=== PATIENT | male | born 1955 | race Caucasian/White ===

== ENCOUNTER 2016-05-19 04:49 | Inpatient (IN) | payer OTHER ==
[2016-05-01 12:15] VITALS: BMI 27.0
--- NOTE | 2016-05-01 12:43 | PAT Medication Instructions ---
Service Date May 01, 2016. Current Home Medication List Lisinopril (Zestril), 5 MG PO QAM Potassium Chloride (Micro-K Ext Rel), Unknown Dose PO QAM Medication Instructions For Your Scheduled Surgery - Hold the following medications the morning of surgery: Potassium Chloride (Micro-K Ext Rel), Unknown Dose PO QAM Lisinopril (Zestril), 5 MG PO QAM If you have any questions please call us at [phone] or [phone] ( Kellie) or [phone]
[2016-05-01 13:08] LABS: BASO % 0.4 %; BASO ABS # 0.03 K/uL (0-0.2); COMPLETE YES; EOS % 1.1 %; HEMATOCRIT 43.6 % (42-52); IG% 0.2 %; LYMPH % 28.5 %; LYMPH ABS # 2.39 K/uL (1.2-3.4); MEAN CELL VOLUME 91.2 fL (80-100); MEAN CORPUSCULAR HEMOGLOBIN 31.8 pg (25-34); MEAN CORPUSCULAR HGB CONC 34.9 g/dl (32-36); MEAN PLATELET VOLUME 11.1 fL (7.4-10.4); MONO % 6.1 %; NEUT % 63.7 %; PLATELET COUNT 182 K/uL (130-400); RED BLOOD COUNT 4.78 M/uL (4.7-6.1); WHITE BLOOD COUNT 8.39 K/uL (4.8-10.8)
--- NOTE | 2016-05-01 13:14 | DIAGNOSTIC IMAGING REPORT ---
CHEST 2 VIEWS ROUTINE CLINICAL HISTORY: Preoperative evaluation. COMPARISON STUDY: No previous studies for comparison. FINDINGS: Lung volumes are normal. There is no pneumothorax or pleural effusion. Cardiac size is normal. Mediastinal contours are normal. There is no evidence of pulmonary edema. Several sclerotic lesions likely reflect skeletal metastases. These were shown on prior imaging studies. IMPRESSION: 1. No acute cardiopulmonary findings. 2. Redemonstration of several suspected blastic metastases. Electronically signed by: Koffi Pineda M.D. 05/01/2016 1:12 PM Dictated Date/Time: 05/01/2016 1:04 PM
[2016-05-01 13:42] LABS: CREATININE 0.61 mg/dl (0.60-1.40)
[2016-05-01 13:43] LABS: BUN/CREATININE RATIO 14.8 (10-20); CALCIUM 9.4 mg/dl (8.5-10.1); POTASSIUM 4.6 mmol/L (3.5-5.1)
[2016-05-19] VITALS (7 sets, daily range): BP systolic 100–152; BP diastolic 63–82; PULSE 83–98; TEMP 36.4–37.3; O2SAT 96–99; Ht 180.3 cm; Wt 87.9 kg
[~2016-05-19] VITALS: Ht 180.3 cm; Wt 87.9 kg
[~2016-05-19 04:49] MED LIST: LISI-729 PO; POTA10CA28 PO
[2016-05-19] MEDS ORDERED: [UNRECOGNIZED DRUG - REMARK] PO (05:56)
[2016-05-19] MEDS ORDERED: CEFAZOLIN 2000 MG/60 ML D5W IV SCH (06:00)
[2016-05-19] MEDS ORDERED: LACTATED RINGER'S 1000ML 1,000 ML IV SCH (06:00)
[2016-05-19] MEDS ORDERED: HEPARIN SOD 5000 UNIT/0.5 ML CARP SQ SCH (06:00)
[2016-05-19] MEDS ORDERED: PHENYLEPHRINE HCL INJ 10 MG/ML VIAL ONE ×2 (06:20→09:12)
[2016-05-19] MEDS ORDERED: EpHEDrine SULFATE INJ 50 MG/ML AMP ONE (06:20)
[2016-05-19] MEDS ORDERED: DEXAMETHASONE SOD INJ 4 MG/ML VIAL ONE (06:20)
[2016-05-19] MEDS ORDERED: SUCCINYLCHOLINE CHLORIDE 20 MG/ML 10 ML VIAL IV ONE (06:20)
[2016-05-19] MEDS ORDERED: GLYCOPYRROLATE INJ 0.2 MG/ML VIAL ONE (06:20)
[2016-05-19] MEDS ORDERED: ONDANSETRON INJ 2 MG/ML 2 ML VIAL ONE ×2 (06:20→08:52)
[2016-05-19] MEDS ORDERED: LIDOCAINE HCL 2% 2 ML VIAL (20MG/ML) ONE (06:20)
[2016-05-19] MEDS ORDERED: FENTANYL CITRATE INJ 50 MCG/1 ML 2 ML VIAL ONE ×3 (06:21→08:20)
[2016-05-19] MEDS ORDERED: MIDAZOLAM HCL 1 MG/ML 2ML VIAL ONE (06:21)
[2016-05-19] MEDS ORDERED: PROPOFOL IV EMULSION 10 MG/ML 20 ML VIAL IV ONE ×2 (06:21→08:52)
[2016-05-19] MEDS ORDERED: ROCURONIUM BROMIDE 10 MG/ML 5 ML VIAL ONE ×2 (06:21→08:52)
[2016-05-19] MEDS ORDERED: NEOSTIGMINE METHYLSULFATE 5 MG/5 ML SYR ONE ×2 (06:21→08:52)
[2016-05-19] MEDS ORDERED: ACETAMINOPHEN 1000 MG/100 ML IV IV ONE (06:43)
[2016-05-19] MEDS ORDERED: FENTANYL CITRATE INJ 50 MCG/1 ML 2 ML VIAL IV PRN (07:15)
[2016-05-19] MEDS ORDERED: EpHEDrine SULFATE INJ 50 MG/ML AMP IV PRN (07:15)
[2016-05-19] MEDS ORDERED: ATROPINE SULFATE 0.1 MG/ML 5ML SYR IV PRN (07:15)
[2016-05-19] MEDS ORDERED: HYDROmorphone INJ 1 MG/ML SYR IV PRN (07:15)
[2016-05-19] MEDS ORDERED: ONDANSETRON INJ 2 MG/ML 2 ML VIAL IV PRN ×2 (07:15→11:00)
--- NOTE | 2016-05-19 07:17 | History & Physical Bridge Note ---
H&P Re-Evaluation Bridge Note: I have examined the patient, reviewed the History & Physical and in the interval since the performance of the History & Physical I have noted the following changes of clinical significance: No changes noted
[2016-05-19] MEDS ORDERED: BELLADONNA/OPIUM SUPP 60 MG SUPP PR ONE ×2 (07:50→08:35)
[2016-05-19] MEDS ORDERED: HYDROmorphone INJ 2 MG/ML SYR/VIAL ONE (08:20)
[2016-05-19] MEDS ORDERED: PHENYLEPHRINE 100MCG/ML 5ML SYR ONE (09:12)
[2016-05-19] MEDS ORDERED: SURGICEL ABSORB HEMOSTAT 2IN X 14IN TOP ONE (10:25)
[2016-05-19] MEDS ORDERED: FLOSEAL HEMOSTATIC MATRIX 10ML TOP ONE (10:25)
[2016-05-19] MEDS ORDERED: BUPIVACAINE 0.5 % 5 MG/1 ML MPF 30ML VIAL INJ ONE (10:41)
--- NOTE | 2016-05-19 10:46 | [facility] Post Operative Brief Note ---
Immediate Operative Summary Operative Date May 19, 2016. Pre-Operative Diagnosis Metastatic prostate cancer and urinary retention Post-Operative Diagnosis Same as preoperative diagnosis Procedure(s) Performed Laparoscopic Prostatectomy, Mamadou Surgeon Dr. Gama Physical Therapy Aides Teacher Surgeon(s) Dr. Leobardo Levy Estimated Blood Loss 125 mL Findings As per dictation Specimens Permanent specimens A: Periprostatic fat B: Prostate and seminal vesicles C: Bladder neck margin Drains YISSEL; graves Anesthesia gen Complication(s) None Disposition Recovery Room / PACU (stable)
[2016-05-19] MEDS ORDERED: MoRPHine SULFATE 2 MG/ML CARP IV PRN (11:00)
[2016-05-19] MEDS ORDERED: ACETAMINOPHEN/CODEINE 300/30MG TAB PO PRN ×2 (11:00)
[2016-05-19] MEDS ORDERED: ACETAMINOPHEN 325 MG TAB PO PRN (11:00)
[2016-05-19] MEDS ORDERED: KETOROLAC TROMETHAMINE 30 MG/ML VIAL IV. PRN (11:00)
[2016-05-19] MEDS ORDERED: LABETALOL HCL IV 5 MG/ML 20ML ONE (11:05)
[2016-05-19] MEDS ORDERED: LABETALOL HCL IV 5 MG/ML 20ML IV PRN (11:15)
[2016-05-19 11:22] LABS: BASO % 0.2 %; BASO ABS # 0.02 K/uL (0-0.2); EOS % 0.2 %; HEMATOCRIT 43.5 % (42-52); IG% 0.3 %; LYMPH ABS # 1.51 K/uL (1.2-3.4); MEAN CELL VOLUME 92.8 fL (80-100); MEAN CORPUSCULAR HEMOGLOBIN 31.3 pg (25-34); MEAN PLATELET VOLUME 11.7 fL (7.4-10.4); MONO % 1.9 %; NEUT % 81.4 %; PLATELET COUNT 201 K/uL (130-400); RED BLOOD COUNT 4.69 M/uL (4.7-6.1); WHITE BLOOD COUNT 9.45 K/uL (4.8-10.8)
[2016-05-19 11:26] LABS: COMPLETE YES; MEAN CORPUSCULAR HGB CONC 33.8 g/dl (32-36)
--- NOTE | 2016-05-19 11:41 | Anesthesiology Progress Note ---
Anesthesia Post Op Note Date & Time May 19, 2016 at 11:40 Vital Signs Pain Intensity: 6.0 Vital Signs Past 12 Hours Date Time Temp Pulse Resp B/P Pulse Ox O2 Delivery O2 Flow Rate FiO2 05/19/16 11:18 149/78 05/19/16 11:17 68 16 96 05/19/16 11:17 69 16 05/19/16 11:13 144/77 05/19/16 11:12 68 16 96 05/19/16 11:12 68 16 05/19/16 11:08 145/74 05/19/16 11:07 93 12 99 05/19/16 11:07 94 12 05/19/16 11:03 180/86 05/19/16 11:02 89 16 100 05/19/16 11:02 89 16 05/19/16 10:58 177/89 05/19/16 10:57 79 12 100 05/19/16 10:57 36.4 85 12 193/94 100 Mask 10 05/19/16 10:57 80 12 05/19/16 05:40 36.5 86 20 152/82 96 Room Air Notes Mental Status: alert / awake / arousable, participated in evaluation Pt Amnestic to Procedure: Yes Nausea / Vomiting: adequately controlled Pain: adequately controlled Airway Patency, RR, SpO2: stable & adequate BP & HR: stable & adequate Hydration State: stable & adequate Anesthetic Complications: no major complications apparent
[2016-05-19 11:44] LABS: BUN/CREATININE RATIO 9.3 (10-20); CALCIUM 8.5 mg/dl (8.5-10.1); CREATININE 0.85 mg/dl (0.60-1.40); POTASSIUM 4.2 mmol/L (3.5-5.1)
--- NOTE | 2016-05-19 12:31 | OPERATIVE REPORT ---
DATE OF OPERATION: 05/19/2016 PREOPERATIVE DIAGNOSIS: Metastatic prostate cancer. POSTOPERATIVE DIAGNOSIS: Metastatic prostate cancer. PROCEDURE PERFORMED: Robotic assisted laparoscopic radical prostatectomy. ANESTHESIA: General. PRIMARY SURGEON: Dr. Marques Gama. ASSISTING SURGEON: Dr. Leobardo Levy. ESTIMATED BLOOD LOSS: 125 mL. SPECIMEN: 1. Periprostatic fat for routine pathology. 2. Prostate and seminal vesicles for routine pathology. DRAINS: YISSEL and Mendez. DESCRIPTION OF THE PROCEDURE: Terry Olivas was identified in the preoperative holding area. Appropriate informed consents were reviewed and completed and the patient was transported to the operating suite. Upon arrival, he received appropriate preoperative antibiotics in the form of Ancef. He additionally received a subcutaneous dose of heparin. Following induction of general anesthesia, he was placed in dorsolithotomy position where he was sterilely padded and braced in standard fashion. Of note, per historical background, Terry Olivas was recently diagnosed with metastatic prostate cancer to lymph node and bone. He additionally had urinary retention. The urinary retention has remained problematic and after discussing different options, he elected to have a radical prostatectomy with the hope that it improves both his long-term local symptom control and his ability to urinate. He is understanding that this is not a curative surgery. Following his sterile prep and drape, we passed a Veress needle per umbilicus and insufflated the abdomen to 15 mmHg. I then made a small infraumbilical incision and entered with a 10 mm 0 degree lens and a 10 mm Visiport. Inspection of the abdomen revealed minimal adhesive disease in the left lateral aspect of the sigmoid colon, otherwise healthy appearing abdominal wall with no issues in our planned port sites. The ports were placed in standard robotic prostatectomy locations and fashion without difficulty. I began my real operative portion of the case by mobilizing the lateral aspect of the sigmoid colon and freeing numerous adhesions in that area until I was able to visualize the left lateral pelvic wall and the pouch of Aravind. I then incised the bilateral umbilical ligaments just inferior to the umbilicus. These were controlled with bipolar and monopolar electrocautery before incising the peritoneum lateral to each and carrying this dissection down to the internal rings. Of note, he has bilateral direct inguinal hernias that were visualized did not include any bowel contents. After dissecting laterally, I dissected distally underneath the pubic arch exposing the anterior surface of the prostate and laterally the endopelvic fascia. I defatted the prostate with a combination of bipolar and monopolar electrocautery. I passed this fat off the table as a specimen. I then opened the endopelvic fascia first on the right and then the left. I began at the base and opened to the apex with care to preserve the lateral levator musculature. Of note, the right side opened quite easily. The left side clearly had more of an inflammatory reaction likely consistent with this prior aggressive cancer diagnosis. I was able to preserve all the lateral musculature and carried this dissection beyond the apex of the prostate. I then proceeded to place a twamyv-ed-pigqh stitch over the dorsal venous complex just distal to the prostate with care to avoid entrapment of the urethra. There was excellent hemostasis. At that time, I turned my attention to demarcation of the bladder neck. Of note, the patient has had an indwelling Mendez catheter for some time now has a significantly inflamed and irritated bladder on CT. I was able to dissect through the anterior portion of this utilizing gentle njastjf-pn-syebxx traction with my instruments as well as slight traction on the Mendez catheter to help demarcate the bladder neck. I incised a very thick detrusor muscle in this location and created an anterior cystotomy. I then carried this dissection laterally around the sides of the presumed bladder neck before completely transecting it. I did inspect into the bladder and saw no significant intravesical median lobe. There appeared to be a relatively good bladder neck preservation, however, my suspicion is that the patient had prostate cancer protruding from the back of the prostate on the left side into the bladder. There were clear nodules progressing in this area that appeared to be related directly to the detrusor muscle in addition to the standard prostate tissue. I attempted to resect all of this tissue. There was one small nodule left at the left apex of the bladder that I resected separately and sent as a bladder neck margin with my suspicion being that this is likely prostate cancer. After completing my anterior bladder neck dissection, I carried my dissection posteriorly. Of note, his bladder was notably thicker than normal and after carrying this through several centimeters of detrusor tissue I encountered the bilateral ampulla of the vasa. I transected each of these after exposing approximately 4 cm. Both seminal vesicles were dissected albeit difficulty. They were relatively small in size and firm likely both involved with cancer is my suspicion. After completing the seminal vesicle dissection, I elevated the prostate and I performed a posterior dissection, carrying the plane between the back of the prostate and the rectum through Denonvilliers' fascia. I carried this distally as far as possible and laterally as far as possible. I then controlled the vascular pedicles on each side utilizing the vessel sealer robotic device. I carried this along through the end of the neurovascular bundles bilaterally and towards the apex of the prostate. I completed my atypical dissection utilizing bipolar and monopolar electrocautery to split the previously suture ligated dorsal venous complex and preserved maximal urethral length. There was excellent hemostasis after the prostate was entirely removed as well as excellent preservation of urethral length. Of note, the urethra was not significantly mobile in this area again raising concern for some malignant involvement. I then collected the prostate in an EndoCatch bag and passed it to the upper abdomen. We ran standard anastomosis beginning at the posterior bladder neck utilizing a double armed V-Loc stitch running from posterior to anterior with excellent approximation and hemostasis. A new Mendez catheter was inserted at that time and the bladder was irrigated aggressively with several 100 mL of saline with no evidence of any leak. Catheter was left in place. Floseal was placed around the anastomosis and a YISSEL drain was guided into the left lateral most port. We undocked the robot and extracted the specimen through the infraumbilical incision by expanding the skin incision horizontally and then splitting the midline between the bellies of the rectus muscle for approximately 3 cm before extracting the specimen. I closed the fascia with 3 tlxwev-tl-ooyya PDS stitches followed by closure of all skin incisions with 4-0 Monocryl and infiltration with 0.5% Marcaine as well as dressing of Dermabond. YISSEL was sutured in place with a 0 silk and the case was concluded. The patient was extubated and taken to the PACU in stable condition. There were no complications. I attest to the content of the Intraoperative Record and any orders documented therein. Any exceptio ns are noted below.
[2016-05-19] MEDS: LACTATED RINGER'S 1000ML 1,000 ML IV SCH ×2 (13:25→17:49)
[2016-05-19 13:29] LABS: PARTIAL THROMBOPLASTIN RATIO 1.2; PROTHROMBIN TIME (PATIENT) 10.8 SECONDS (9.0-12.0)
[2016-05-19] MEDS: HEPARIN SOD 5000 UNIT/0.5 ML CARP SQ SCH ×2 (14:28→21:40)
[2016-05-19] MEDS: CEFAZOLIN IV 1,000 MG in DEXTROSE 5% 50ML 50 ML IV SCH ×2 (15:53→23:12)
[2016-05-19] MEDS: DOCUSATE SODIUM 100 MG CAP PO SCH (21:15)
[2016-05-20] VITALS (7 sets, daily range): BP systolic 116–136; BP diastolic 56–73; PULSE 94–106; TEMP 36.7–37.3; O2SAT 91–97
[2016-05-20] MEDS: LACTATED RINGER'S 1000ML 1,000 ML IV SCH ×3 (02:26→19:07)
[2016-05-20 05:50] LABS: BASO % 0.2 %; BASO ABS # 0.02 K/uL (0-0.2); COMPLETE YES; EOS % 0.2 %; HEMATOCRIT 38.6 % (42-52); IG% 0.2 %; LYMPH % 21.7 %; LYMPH ABS # 2.38 K/uL (1.2-3.4); MEAN CELL VOLUME 92.6 fL (80-100); MEAN CORPUSCULAR HEMOGLOBIN 31.4 pg (25-34); MEAN CORPUSCULAR HGB CONC 33.9 g/dl (32-36); MEAN PLATELET VOLUME 11.6 fL (7.4-10.4); MONO % 8.3 %; NEUT % 69.4 %; PLATELET COUNT 182 K/uL (130-400); RED BLOOD COUNT 4.17 M/uL (4.7-6.1); WHITE BLOOD COUNT 10.99 K/uL (4.8-10.8)
[2016-05-20] MEDS: HEPARIN SOD 5000 UNIT/0.5 ML CARP SQ SCH ×4 (05:56→20:46)
[2016-05-20 06:27] LABS: BUN/CREATININE RATIO 12.2 (10-20); CALCIUM 8.4 mg/dl (8.5-10.1); CREATININE 0.54 mg/dl (0.60-1.40); POTASSIUM 3.9 mmol/L (3.5-5.1)
[2016-05-20] MEDS: CEFAZOLIN IV 1,000 MG in DEXTROSE 5% 50ML 50 ML IV SCH ×2 (07:42→15:57)
[2016-05-20] MEDS: DOCUSATE SODIUM 100 MG CAP PO SCH ×2 (07:42→20:38)
[2016-05-20] MEDS: LISINOPRIL 5 MG TAB PO SCH (07:42)
--- NOTE | 2016-05-20 07:45 | Progress Note ---
Progress Note S: Doing very well - ambulating without issue - pain well controlled, no narcotic use since surgery - urine clear O: 05/20/16 05:12 Red Blood Count 4.17, Mean Corpuscular Volume 92.6, Mean Corpuscular Hemoglobin 31.4, Mean Corpuscular Hemoglobin Concent 33.9, Mean Platelet Volume 11.6, Neutrophils (%) (Auto) 69.4, Lymphocytes (%) (Auto) 21.7, Monocytes (%) (Auto) 8.3, Eosinophils (%) (Auto) 0.2, Basophils (%) (Auto) 0.2, Neutrophils # (Auto) 7.64, Lymphocytes # (Auto) 2.38, Monocytes # (Auto) 0.91, Eosinophils # (Auto) 0.02, Basophils # (Auto) 0.02 05/20/16 05:12 Test 05/19/16 11:11 05/19/16 13:07 05/20/16 05:12 Bedside Glucose 147 mg/dl (70-99) Prothrombin Time 10.8 SECONDS (9.0-12.0) Prothromb Time International Ratio 1.0 (0.9-1.1) Activated Partial Thromboplast Time 31.9 SECONDS (21.0-31.0) Partial Thromboplastin Ratio 1.2 White Blood Count 10.99 K/uL (4.8-10.8) Red Blood Count 4.17 M/uL (4.7-6.1) Hemoglobin 13.1 g/dL (14.0-18.0) Hematocrit 38.6 % (42-52) Mean Corpuscular Volume 92.6 fL (80-100) Mean Corpuscular Hemoglobin 31.4 pg (25-34) Mean Corpuscular Hemoglobin Concent 33.9 g/dl (32-36) Platelet Count 182 K/uL (130-400) Mean Platelet Volume 11.6 fL (7.4-10.4) Neutrophils (%) (Auto) 69.4 % Lymphocytes (%) (Auto) 21.7 % Monocytes (%) (Auto) 8.3 % Eosinophils (%) (Auto) 0.2 % Basophils (%) (Auto) 0.2 % Neutrophils # (Auto) 7.64 K/uL (1.4-6.5) Lymphocytes # (Auto) 2.38 K/uL (1.2-3.4) Monocytes # (Auto) 0.91 K/uL (0.11-0.59) Eosinophils # (Auto) 0.02 K/uL (0-0.5) Basophils # (Auto) 0.02 K/uL (0-0.2) RDW Standard Deviation 45.2 fL (36.4-46.3) RDW Coefficient of Variation 13.4 % (11.5-14.5) Immature Granulocyte % (Auto) 0.2 % Immature Granulocyte # (Auto) 0.02 K/uL (0.00-0.02) Anion Gap 7.0 mmol/L (3-11) Est Creatinine Clear Calc Drug Dose 151.0 ml/min Estimated GFR () 130.4 Estimated GFR (Non- 112.5 BUN/Creatinine Ratio 12.2 (10-20) Calcium Level 8.4 mg/dl (8.5-10.1) Vital Signs Past 12 Hours Date Time Temp Pulse Resp B/P Pulse Ox O2 Delivery O2 Flow Rate FiO2 05/20/16 03:13 37.2 100 20 126/73 97 Nasal Cannula 2.0 05/19/16 23:02 37.3 93 18 137/69 99 Nasal Cannula 4.0 05/19/16 19:45 Nasal Cannula 4.0 Low YISSEL output NAD AAOx3 no resp distress RRR abd soft incisions appropriate YISSEL serosang Urine clear A/p: Metastatic prostate ca - s/p RALP secondary to local symptoms and urinary retention - doing very well - cont ambulation - slow diet advance - potential discharge tomorrow
--- NOTE | 2016-05-20 13:47 | Anesthesiology Progress Note ---
Anesthesia Post Op Note Date & Time May 20, 2016 at 13:47 Vital Signs Pain Intensity: 3.0 Vital Signs Past 12 Hours Date Time Temp Pulse Resp B/P Pulse Ox O2 Delivery O2 Flow Rate FiO2 05/20/16 11:04 97 94 05/20/16 07:47 36.8 99 16 136/56 91 Room Air 05/20/16 07:30 97 Room Air 05/20/16 03:13 37.2 100 20 126/73 97 Nasal Cannula 2.0 Notes Mental Status: alert / awake / arousable, participated in evaluation Pt Amnestic to Procedure: Yes Nausea / Vomiting: adequately controlled Pain: adequately controlled Airway Patency, RR, SpO2: stable & adequate BP & HR: stable & adequate Hydration State: stable & adequate Anesthetic Complications: no major complications apparent
[2016-05-21] MEDS: LACTATED RINGER'S 1000ML 1,000 ML IV SCH ×2 (02:50→10:35)
[2016-05-21] MEDS: HEPARIN SOD 5000 UNIT/0.5 ML CARP SQ SCH (05:57)
[2016-05-21 07:45] VITALS: BP 121/62; PULSE 94; TEMP 36.8; O2SAT 93
[2016-05-21 07:55] VITALS: O2SAT 93
[2016-05-21] MEDS: LISINOPRIL 5 MG TAB PO SCH (07:59)
[2016-05-21] MEDS: DOCUSATE SODIUM 100 MG CAP PO SCH ×2 (07:59→08:09)
[2016-05-21] MEDS ORDERED: CIPR-255 PO (08:21)
[2016-05-21] MEDS ORDERED: ACET-749 PO (08:21)
[2016-05-21] MEDS ORDERED: DOCU-94 PO (08:21)
--- NOTE | 2016-05-21 08:23 | Discharge Instructions ---
Discharge Instructions Admission Reason for Admission: Prostate Cancer Discharge Discharge Diagnosis / Problem: Prostate cancer Discharge Goals Goal(s): Decrease discomfort, Improve function, Increase independence, Improve disease control Activity Recommendations Activity Limitations: per Instructions/Follow-up section Lifting Limitations: no more than 25 pounds Exercise/Sports Limitations: until after follow-up appointment May Resume Sexual Activity: after follow-up appointment Shower/Bathe: no limitations (Please avoid the bathtub, but you may shower now) Driving or Machine Use: no limitations . Instructions / Follow-Up Instructions / Follow-Up Please keep your previously scheduled follow up appointment. Current Hospital Diet Hospital Diet(s): Regular Diet Discharge Diet Recommended Diet: Regular Diet Procedures Procedures Performed: Laparoscopic Prostatectomy, DaVinci Pending Studies Studies pending at discharge: no Medical Emergencies . Who to Call and When: Medical Emergencies: If at any time you feel your situation is an emergency, please call 911 immediately. . Non-Emergent Contact Non-Emergency issues call your: Urologist Call Non-Emergent contact if: you have a fever, temperature is above 101.5, wound has increased pain . . "Provider Documentation" section prepared by Kristofer Peterson. VTE Core Measure Inpt VTE Proph given/why not?: Treatment not indicated [place] Drug Monitoring Program Search Results: patient reviewed within database
--- NOTE | 2016-05-21 08:29 | Progress Note ---
Progress Note S: Doing very well - minimal pain - ambulating well - tolerating a diet - BM overnight O: Vital Signs Past 12 Hours Date Time Temp Pulse Resp B/P Pulse Ox O2 Delivery O2 Flow Rate FiO2 05/21/16 07:55 93 Room Air 05/21/16 07:45 36.8 94 12 121/62 93 Room Air 05/20/16 23:30 Room Air 05/20/16 23:04 36.7 106 16 122/70 94 Room Air NAD AAOx3 no resp distress RRR abd soft - incisions appropriate - ALEX with scant serosang out put - urine clear with minimal blood in the tubing A/p: Met prostate ca s/p prostatectomy secondary to retention and local symptoms - doing well - d/c alex - home today
--- NOTE | 2016-05-21 08:33 | Discharge Summary ---
Discharge Summary Admission Date: May 19, 2016 at 10:46 Discharge Date: May 21, 2016 Discharge Disposition: Home Principal Diagnosis: prostate ca Procedures: robotic prostatectomy Medication Reconciliation New Medications: Acetaminophen/Codeine (Tylenol W/Codeine #3) 300 Mg/30 Mg Tab 1 TAB PO Q4H PRN for Pain, #30 TAB Ciprofloxacin Hcl (Cipro) 500 Mg Tab 500 MG PO BID, #14 TAB Docusate Sodium (Colace) 100 Mg Cap 1 CAP PO BID for 30 Days, #60 CAP 2 Refills Continued Medications: Lisinopril (Zestril) 5 Mg Tab 5 MG PO QAM, TAB Potassium Chloride (Micro-K Ext Rel) Unknown Strength Cap Unknown Dose PO QAM, CAP [antibiotic ? name] () 1 TAB PO BID Hospital Course Pt admitted for prostatectomy. Hx of metastatic prostate ca w/ urinary retention and local symptoms. He has elected prostatectomy with the hope of alleviating his retention and local discomfort. This was not a curative attempt. He tolerated the surgery very well and progressed equally well on the floor post operatively. He was ambulatory, his urine cleared appropriately, his YISSEL out put was minimal and he was tolerating a diet. His bowels were moving by POD #2 and he was determined to be in stable condition for d/c home. Total time spent on discharge = This includes examination of the patient, discharge planning, medication reconciliation, and communication with other providers. Discharge Instructions Please see previously written d/c instructions
[2016-05-21 09:06] VITALS: BP 121/62; PULSE 94; TEMP 36.8; O2SAT 93
== END 2016-05-21 11:59 | disposition home or self-care (01) | DRG 707 ==
LOC: ENRESERVTM → ENRESERVDT → C.ACU 04:49 → C.MSN 10:46
PROVIDERS: ADMIT Urology; ATTEND Urology
PROC: 8E0W4CZ Robotic Assisted Procedure of Trunk Region, Percutaneous Endoscopic Approach (ICD-10-PCS; 2016-05-19)
PROC: 0VT04ZZ Resection of Prostate, Percutaneous Endoscopic Approach (ICD-10-PCS; principal; 2016-05-19 07:30)
DX: C61 Malignant neoplasm of prostate (principal); N13.30 Unspecified hydronephrosis; C77.9 Secondary and unspecified malignant neoplasm of lymph node, unspecified; C79.51 Secondary malignant neoplasm of bone; R33.9 Retention of urine, unspecified; I10 Essential (primary) hypertension; F17.200 Nicotine dependence, unspecified, uncomplicated; Z79.899 Other long term (current) drug therapy; Z83.2 Family history of diseases of the blood and blood-forming organs and certain disorders involving the immune mechanism

== ENCOUNTER → 2016-08-31 | Outpatient (CLI) | payer OTHER ==
[~2016-08-31] MED LIST changes: +ACET-749 PO; +CIPR-255 PO; +DOCU-94 PO; +LEUP1INJ6 IM; +OXYC1TAB3 PO; +[UNRECOGNIZED DRUG - REMARK] PO
== END | disposition home or self-care (01) ==
LOC: C.LAB1850 10:57
PROVIDERS: ATTEND Urology
DX: C61 Malignant neoplasm of prostate (principal)

== ENCOUNTER → 2016-12-28 | Outpatient (CLI) | payer OTHER ==
[~2016-12-28] MED LIST changes: -ACET-749 PO; -LEUP1INJ6 IM; -OXYC1TAB3 PO
== END | disposition home or self-care (01) ==
LOC: C.LAB1850 10:05
PROVIDERS: ATTEND Urology
DX: C61 Malignant neoplasm of prostate (principal)

== ENCOUNTER → 2017-01-27 | Outpatient (CLI) | payer OTHER ==
[~2017-01-27] MED LIST changes: +OPTIRAY 320 IV PRN
--- NOTE | 2017-01-27 11:11 | DIAGNOSTIC IMAGING REPORT ---
CT UROGRAM CLINICAL HISTORY: Prostate cancer. COMPARISON STUDY: Abdominal CT dated 03/18/2016. TECHNIQUE: Before and following the IV administration of 92 cc of Optiray 320, CT urogram of the abdomen and pelvis is performed from the lung bases to the proximal femora. Images are reviewed in the axial, sagittal, and coronal planes. IV contrast was administered without complication. A dose lowering technique was utilized adhering to the principles of ALARA. CT DOSE: 1742.22 mGycm FINDINGS: Lung bases: The heart is normal in size and without pericardial effusion. The lung bases are clear. There is a tiny hiatal hernia. Liver: The contrast-enhanced liver is normal in size, contour, and attenuation. There is no intrahepatic biliary ductal dilatation. The hepatic veins and portal veins are patent. Gallbladder: Unremarkable. Spleen: Normal in size and attenuation. Pancreas: Unremarkable. Adrenal glands: Unremarkable. Kidneys and ureters: The contrast enhanced kidneys demonstrate mild cortical atrophy and are without hydronephrosis. There are no renal calculi identified on the unenhanced images. 2 small parenchymal calcifications are identified in the right kidney. The kidneys enhance and excrete symmetrically. Scattered subcentimeter cortical hypodensities are identified. These likely represent cysts but are too small for definitive characterization. There is no enhancing renal cortical mass lesion identified. Mild diffuse urothelial thickening is suggested in both ureters. There is no evidence of urothelial lesion within the renal pelvis bilaterally or along the course of either ureter. The mid right ureter is not well opacified by excreted contrast. Abdominal vasculature: The abdominal aorta is normal in course and caliber noting advanced atherosclerotic calcification. High-grade stenosis is again seen within the left external iliac artery. 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 Bowel: There is moderate colonic diverticulosis without CT evidence of acute diverticulitis. No bowel obstruction is seen. The appendix is not identified. Peritoneum: There is no intraperitoneal free air or abdominal ascites. Lymphadenopathy: None. Pelvic viscera: The prostate gland is surgically absent. There is irregular bladder wall thickening and trabeculation suggesting the sequelae of chronic outlet obstruction Skeletal structures: The skeletal structures are osteopenic. Findings are consistent with multifocal osteoblastic metastatic disease, similar to 03/18/2016 examination. Sclerotic lesions are seen within the left sixth and seventh ribs. There is a large sclerotic lesion seen involving the majority of the T11 vertebral body. Large sclerotic lesions are seen within the medial right ilium and the left ischium. 3 small sclerotic foci are present within the left ilium. Tiny sclerotic foci are also seen within L4, the right iliac wing, and the sacrum. IMPRESSION: 1. Multifocal osteoblastic metastatic disease is again seen. This is overall similar to the 03/18/2016 examination. There is no CT evidence of progressive bony disease. 2. There are postoperative changes from interval prostatectomy. 3. The bladder wall appears irregularly thickened and trabeculated, likely representing the sequelae of chronic outlet obstruction. If there is clinical concern for underlying bladder lesion then cystoscopy would be appropriate. 4. Mild diffuse urothelial thickening is again seen involving the ureters and renal pelvis. No filling defect is identified to suggest urothelial lesion. 5. Moderate colonic diverticulosis without CT evidence of acute diverticulitis. 6. Additional findings as above. Electronically signed by: Paul Sinclair M.D. 01/27/2017 11:10 AM Dictated Date/Time: 01/27/2017 10:55 AM
--- NOTE | 2017-01-27 13:51 | DIAGNOSTIC IMAGING REPORT ---
WHOLE-BODY NUCLEAR BONE SCAN CLINICAL HISTORY: Prostate cancer. COMPARISON STUDY: CT scan of the abdomen and pelvis dated 01/27/2017. TECHNIQUE: Three hours following the IV administration of 27.2 mCi of technetium 99m MDP, whole body nuclear bone scan was performed in the anterior and posterior projections. FINDINGS: There are multiple foci of abnormal tracer deposition identified typical in appearance for bony metastatic disease. A metastatic lesion is identified in the body of T11. These are also seen within the bilateral ribs, likely the right fifth as well as the left sixth and eighth ribs. Large lesions are also seen within the left ischium and the medial right ilium. A large right-sided calvarial lesion is suspected. Typically degenerative uptake is identified in the shoulders, knees, and ankles. There is expected excreted activity within the renal collecting system and bladder. Injection site is noted in the left antecubital fossa. Urine contamination is seen in the groin. IMPRESSION: Findings are consistent with multifocal osseous metastatic disease as above. Electronically signed by: Paul Sinclair M.D. 01/27/2017 1:50 PM Dictated Date/Time: 01/27/2017 1:46 PM
== END | disposition home or self-care (01) ==
LOC: C.NUCL 09:52
PROVIDERS: ATTEND Urology
DX: C61 Malignant neoplasm of prostate (principal); Z90.79 Acquired absence of other genital organ(s); K57.32 Diverticulitis of large intestine without perforation or abscess without bleeding

== ENCOUNTER → 2017-02-24 | Outpatient (CLI) | payer OTHER ==
[~2017-02-24] MED LIST changes: +GADAVIST IV PRN; -OPTIRAY 320 IV PRN
--- NOTE | 2017-02-24 13:37 | DIAGNOSTIC IMAGING REPORT ---
(CHEST) THORAX WITHOUT CLINICAL HISTORY: 61 years-old Male presenting with METASTATIC PROSTATE CA. TECHNIQUE: Multidetector CT imaging of the chest was performed without the use of intravenous contrast. IV contrast: None. A dose lowering technique was used consistent with the principles of ALARA (as low as reasonably achievable). COMPARISON: None. CT DOSE (mGy.cm): The estimated cumulative dose is 404.73 mGy.cm. FINDINGS: Area Mechanic topogram: Unremarkable. On soft tissue windows, normal thyroid and thoracic inlet. No axillary, supraclavicular, or mediastinal lymphadenopathy. Evaluation of the mihir limited without intravenous contrast. Atherosclerosis of the aorta. Aortic valve and coronary artery calcification. Normal heart size. No pericardial or pleural effusion. Upper abdomen normal. On lung windows, no focal infiltrate or nodule. Airways patent. On bone windows, degenerative changes of the spine. Focal sclerotic lesion in the right anterolateral fifth rib additional sclerotic lesion suggested in the anterior left fifth rib, anterolateral seventh rib, and possibly the lateral left eighth rib sclerotic lesion diffusely involving the T11 vertebral body. IMPRESSION: 1. Findings consistent with multifocal osseous metastatic disease. No involvement of the lungs or lymphadenopathy. Electronically signed by: Terry Loera M.D. 02/24/2017 1:36 PM Dictated Date/Time: 02/24/2017 1:31 PM
--- NOTE | 2017-02-24 15:00 | DIAGNOSTIC IMAGING REPORT ---
THORACIC SPINE MRI WITH AND WITHOUT CONTRAST HISTORY: METASTATIC PROSTATE CA TECHNIQUE: Multiplanar multisequence MRI of the thoracic spine was performed both before and after the intravenous administration of contrast. COMPARISON: Chest CT 02/24/2017. FINDINGS: There is confirmation of the primarily hypointense lesion occupying the majority of the T11 vertebral body. This extends into the left pedicle, left lamina, and spinous process. Postcontrast sequences demonstrate a small amount of soft tissue enhancement along the left epidural space at this level consistent with extension of tumor. This measures up to 4 mm in thickness. This results in mild mass effect along the left thecal sac without significant central canal narrowing or cord deformity. The soft tissue extends into the roof of the left T11-T12 neural foramen and results in mild to moderate narrowing. A T1 and T2 hyperintense lesion within the T8 vertebral bodies consistent with a hemangioma. No additional suspicious lesions identified within the thoracic spine. Thoracic spinal cord is normal and course, caliber, and signal intensity. There is mild edema within the T11 vertebral body. No significant loss of height within the T11 vertebral body to suggest a pathologic fracture at this time. IMPRESSION: A hypointense intense lesion occupying the majority of the T11 vertebral body and extending into the left pedicle, left lamina, and spinous process consistent with a metastatic focus. There is also evidence for soft tissue extension of tumor into the left epidural space without significant central canal narrowing. This also extends into the left T11-T12 neural foramen resulting in mild to moderate narrowing. Electronically signed by: Solomon Vivas M.D. 02/24/2017 2:59 PM Dictated Date/Time: 02/24/2017 2:45 PM
== END | disposition home or self-care (01) ==
LOC: C.MRI 13:14
PROVIDERS: ATTEND Internal Medicine Hematology & Oncology
DX: C61 Malignant neoplasm of prostate (principal); M89.9 Disorder of bone, unspecified; M48.04 Spinal stenosis, thoracic region

== ENCOUNTER 2017-07-08 12:30 | Inpatient (IN) | payer OTHER ==
[~2017-07-08] VITALS: Ht 180.3 cm; Wt 78.0 kg
[~2017-07-08 12:30] MED LIST changes: -CIPR-255 PO; -DOCU-94 PO; -GADAVIST IV PRN; +LEUP1INJ6 IM; +OXYC1TAB3 PO; -POTA10CA28 PO; -[UNRECOGNIZED DRUG - REMARK] PO
--- NOTE | 2017-07-08 12:50 | EMERGENCY ROOM VISIT NOTE ---
History Report prepared by Roxy: David Baez Under the Supervision of: Dr. Cuba Wong D.O. First contact with patient: 12:44 Chief Complaint: FLANK PAIN Stated Complaint: PAIN IN R SIDE History of Present Illness The patient is a 61 year old male who presents to the Emergency Room with complaints of severe and worsening pain down the right side of his abdomen that began 5-6 days ago. Nothing makes the pain worse, and it is improved with OxyContin. He was coughing last weekend secondary to cold symptoms. He states that the abdomen did start to swell while he was coughing. The patient states that he had a prostatectomy and a hernia operation in the past. The hernia operation was in last November, and he has been told that the hernia has now returned. The prostatectomy was scheduled secondary to prostate cancer. He is currently on chemotherapy treatment. Source of History: patient Onset: 5-6 days ago Position: abdomen (Right) Symptom Intensity: severe Timing: worsening Associated Symptoms: + cough Note: Known hernia present. Review of Systems See HPI for pertinent positives & negatives. A total of 10 systems reviewed and were otherwise negative. Past Medical & Surgical Medical Problems: (1) Appendicitis with perforation (2) Prostate cancer Family History No pertinent family history Social History Smoking Status: Former Smoker Alcohol Use: none Drug Use: none Current/Historical Medications Scheduled Bicalutamide (Casodex), 4 TAB PO DAILY Leuprolide Acetate (6 Month) (Lupron Depot), 45 MG IM DIRECTED Lisinopril (Zestril), 5 MG PO QAM Allergies Coded Allergies: No Known Allergies (Unverified , 05/19/16) Physical Exam Vital Signs Date Time Temp Pulse Resp B/P (MAP) Pulse Ox O2 Delivery O2 Flow Rate FiO2 07/08/17 13:55 116 15 156/70 97 Room Air 07/08/17 13:09 136 07/08/17 12:36 36.6 139 20 115/70 98 Room Air Physical Exam GENERAL: Patient is awake, alert, and in no acute distress. Patient is resting comfortably and showing no signs of anxiety EYES: The conjunctivae are clear. The pupils are round and reactive. EARS, NOSE, MOUTH AND THROAT: The nose is without any evidence of any deformity. Mucous membranes are moist tongue is midline NECK: The neck is nontender and supple. RESPIRATORY: Normal respiratory effort is noted there is no evidence of wheezing rhonchi or rales CARDIOVASCULAR: Tachycardic rate and regular rhythm noted there no murmurs rubs or gallops normal S1 normal S2 GASTROINTESTINAL: The abdomen moderately distended but diffusely tender. Bowel sounds are present in all quadrants. There is swelling noted in the right upper abdomen, consistent with abdominal wall hernia. BACK: No midline tenderness or or step-off noted range of motion in flexion extension as well as rotation no signs of muscle spasm noted MUSCULOSKELETAL/EXTREMITIES: There is no evidence of gross deformity full range of motion is noted in the hips and shoulders SKIN: There is no obvious evidence of any rash. There are no petechiae, pallor or cyanosis noted. NEUROLOGIC: Patient is awake alert and oriented x3 Medical Decision & Procedures ER Provider Diagnostic Interpretation: Radiology results as stated below per my review and radiologist interpretation: CHEST ONE VIEW PORTABLE CLINICAL HISTORY: cough COMPARISON STUDY: 05/01/2016 FINDINGS: The cardiac and mediastinal contours are normal. There is no evidence of focal pulmonary consolidation. There is no evidence of failure. No pleural effusions are visualized.[ The ribs appear sclerotic consistent with osteoblastic metastasis. IMPRESSION: 1. No active disease in the chest 2. Osteoblastic skeletal metastasis Electronically signed by: Jarred Cui M.D. 07/08/2017 1:15 PM Dictated Date/Time: 07/08/2017 1:[address] ABD/PELVIS IV CONTRAST ONLY CLINICAL HISTORY: Right lower quadrant and flank pain. COMPARISON STUDY: 01/27/2017 TECHNIQUE: Following the IV administration of 93 mL of Optiray-320, CT scan of the abdomen and pelvis was performed from the lung bases to the proximal femurs. Images are reviewed in the axial, sagittal, and coronal planes. IV contrast was administered without complication. A dose lowering technique was utilized adhering to the principles of ALARA. CT DOSE: 993.87 mGycm FINDINGS: Lower chest: There are coronary artery calcifications. There are no pleural effusions. There is no focal pulmonary consolidation. Liver: The contrast-enhanced liver is normal in size, contour, and attenuation. There is no intrahepatic biliary ductal dilatation. The hepatic veins and portal veins are patent. Gallbladder: Unremarkable. Spleen: The spleen is borderline enlarged measuring 12.6 cm Pancreas: Unremarkable. Adrenal glands: There is stable adrenal gland thickening Kidneys: There is a punctate right renal cortical calcification. There are small renal hypodensities measuring up to 1 cm in diameter. These statistically represent cysts. No ureteral or bladder calculi are visualized. There is mild bilateral perinephric stranding most pronounced on the right. Bowel: There is bowel wall thickening involving the cecum and proximal ascending colon. There are extraluminal gas bubbles consistent with a bowel perforation. There is a fluid collection located lateral to the cecum and ascending colon measuring 46 x 17 x 46 mm. This is felt to represent a pericolonic abscess. Medial to this is a second fluid collection measuring 21 mm. A second small abscess is suspected. The findings are likely secondary to either a perforated appendicitis or perforated cecal diverticulitis. There is a small umbilical hernia. A bowel loop partially protrudes into the hernia. This does not result in obstruction. Peritoneum: There are droplets of extraperitoneal air adjacent to the cecum as described above. Vasculature: The abdominal aorta is normal in course and caliber. Adenopathy: Mildly prominent ileocolic lymph nodes are likely reactive. Pelvic viscera: There is bladder wall thickening. Skeletal structures: There is a densely sclerotic T11 vertebral body. Additional skeletal sclerotic lesions are visualized. The findings are suspicious for blastic skeletal metastasis. IMPRESSION: 1. Inflammatory process at the level of the cecum and proximal ascending colon. There are extraluminal gas bubbles consistent with a bowel microperforation. There are 2 small fluid collections adjacent to the cecum consistent with small pericolonic abscesses. The findings are likely secondary to either a perforated appendicitis or perforated cecal diverticulitis. 2. Bladder wall thickening 3. Blastic skeletal metastasis Electronically signed by: Jarred Cui M.D. 07/08/2017 2:03 PM Dictated Date/Time: 07/08/2017 1:50 PM Laboratory Results 07/08/17 13:00 Red Blood Count 4.79, Mean Corpuscular Volume 89.1, Mean Corpuscular Hemoglobin 31.3, Mean Corpuscular Hemoglobin Concent 35.1, Mean Platelet Volume 11.2, Neutrophils (%) (Auto) 87.7, Lymphocytes (%) (Auto) 5.3, Monocytes (%) (Auto) 6.4, Eosinophils (%) (Auto) 0.0, Basophils (%) (Auto) 0.1, Neutrophils # (Auto) 20.81, Lymphocytes # (Auto) 1.25, Monocytes # (Auto) 1.52, Eosinophils # (Auto) 0.00, Basophils # (Auto) 0.03 07/08/17 13:00 Test 07/08/17 13:00 07/08/17 13:09 White Blood Count 23.74 K/uL (4.8-10.8) Red Blood Count 4.79 M/uL (4.7-6.1) Hemoglobin 15.0 g/dL (14.0-18.0) Hematocrit 42.7 % (42-52) Mean Corpuscular Volume 89.1 fL (80-100) Mean Corpuscular Hemoglobin 31.3 pg (25-34) Mean Corpuscular Hemoglobin Concent 35.1 g/dl (32-36) Platelet Count 252 K/uL (130-400) Mean Platelet Volume 11.2 fL (7.4-10.4) Neutrophils (%) (Auto) 87.7 % Lymphocytes (%) (Auto) 5.3 % Monocytes (%) (Auto) 6.4 % Eosinophils (%) (Auto) 0.0 % Basophils (%) (Auto) 0.1 % Neutrophils # (Auto) 20.81 K/uL (1.4-6.5) Lymphocytes # (Auto) 1.25 K/uL (1.2-3.4) Monocytes # (Auto) 1.52 K/uL (0.11-0.59) Eosinophils # (Auto) 0.00 K/uL (0-0.5) Basophils # (Auto) 0.03 K/uL (0-0.2) RDW Standard Deviation 43.6 fL (36.4-46.3) RDW Coefficient of Variation 13.3 % (11.5-14.5) Immature Granulocyte % (Auto) 0.5 % Immature Granulocyte # (Auto) 0.13 K/uL (0.00-0.02) Urine Color DK YELLOW Urine Appearance CLOUDY (CLEAR) Urine pH 5.0 (4.5-7.5) Urine Specific [place] 1.024 (1.000-1.030) Urine Protein 1+ (NEG) Urine Glucose (UA) NEG (NEG) Urine Ketones TRACE (NEG) Urine Occult Blood TRACE (NEG) Urine Nitrite POS (NEG) Urine Bilirubin 1+ (NEG) Urine Urobilinogen POS (NEG) Urine Leukocyte Esterase SMALL (NEG) Urine WBC (Auto) >30 /hpf (0-5) Urine RBC (Auto) 0-4 /hpf (0-4) Urine Hyaline Casts (Auto) 5-10 /lpf (0-5) Urine Epithelial Cells (Auto) 0-5 /lpf (0-5) Urine Bacteria (Auto) 4+ (NEG) Est Creatinine Clear Calc Drug Dose 81.3 ml/min Estimated GFR () 93.6 Estimated GFR (Non- 80.7 BUN/Creatinine Ratio 16.3 (10-20) Calcium Level 8.8 mg/dl (8.5-10.1) Total Bilirubin 1.3 mg/dl (0.2-1) Direct Bilirubin 0.6 mg/dl (0-0.2) Aspartate Amino Transf (AST/SGOT) 7 U/L (15-37) Alanine Aminotransferase (ALT/SGPT) 11 U/L (12-78) Alkaline Phosphatase 98 U/L (45-117) Total Creatine Kinase 19 U/L (39-308) Total Protein 8.3 gm/dl (6.4-8.2) Albumin 3.3 gm/dl (3.4-5.0) Lipase 50 U/L (73-393) Bedside Hemoglobin 16.0 g/dl (14.0-18.0) Bedside Hematocrit 47 % (42-52) Bedside Sodium 133 mEq/L (135-144) Bedside Potassium 4.1 mEq/L (3.3-5.0) Bedside Chloride 95 mEq/L (101-112) Bedside Total CO2 23 mEq/l (24-31) Anion Gap 19.0 mmol/L (16-25) Bedside Blood Urea Nitrogen 16 mg/dl (7-18) Bedside Creatinine 0.7 mg/dl (0.6-1.3) Bedside Glucose (other) 231 mg/dl (70-99) Bedside Ionized Calcium (Luis) 1.06 mmol/l (1.12-1.32) Laboratory results per my review. Medications Administered Medications (Trade) Dose Ordered Sig/Marcio Route Start Time Stop Time Status Last Admin Dose Admin Sodium Chloride 1,000 ml @ 999 mls/hr Q1H1M STAT IV 07/08/17 12:55 07/08/17 13:55 DC 07/08/17 13:14 999 MLS/HR Sodium Chloride 1,000 ml @ 999 mls/hr Q1H1M STAT IV 07/08/17 14:12 07/08/17 15:12 DC 07/08/17 14:21 999 MLS/HR Piperacillin Sod/ Tazobactam Sod (Zosyn Iv) 4.5 gm NOW STAT IV 07/08/17 14:12 07/08/17 14:14 DC 07/08/17 14:21 4.5 GM ED Course 1246: The patient was evaluated in room A10. A complete history and physical examination were performed. 1254: Ordered Sodium Chloride 1000 mL @ 999 mL/hr IV. 1350: I checked on the patient at this time. He is doing well. 1411: I discussed the case with Kimberley Segura PA-C. She will evaluate the patient for further treatment. 1412: Ordered Zosyn 4.5 mg IV, Sodium Chloride 1000 mL @ 999 mL/hr IV. Medical Decision Differential diagnosis: Etiologies such as appendicitis, diverticulitis, PUD, biliary pathology, UTI, pancreatitis, obstruction, mesenteric ischemia, aortic pathology, infections, inflammatory bowel disease, renal colic, as well as others were entertained. Nursing notes are reviewed. The patient is a 61-year-old male who presented to the emergency department for an evaluation of right-sided abdominal pain. The patient was felt to have a mass in his abdomen. On my initial evaluation I thought this could be consistent with a hernia but the patient had significant tenderness in this area. He was found to have an elevated white blood cell count as well as signs of urinary tract infection. He was treated with IV antibiotics. The patient had a CAT scan of the abdomen and pelvis because of his pain and an elevated white blood cell count. This appears to show an area of infection with microperforation which could either be consistent with cecal diverticulitis or appendicitis. This is not very clearly delineated by the CAT scan. I discussed this case with the on-call general surgical group. They have agreed to evaluate the patient in the emergency department for further management and disposition. I discussed patient's laboratory and radiographic studies with him. Medication Reconcilliation Current Medication List: was personally reviewed by me Blood Pressure Screening Patient's blood pressure: Elevated blood pressure Referred to surgeon. Consults Time Called: 1407 Consulting Physician: Kimberley Segura PA-C Returned Call: 1411 I discussed the case with Kimberley Moncada - General Surgery [facility]. She will evaluate the patient for further treatment. Impression Primary Impression: Diverticulitis of intestine with perforation Additional Impression: Urinary tract infection Scribe Attestation The scribe's documentation has been prepared under my direction and personally reviewed by me in its entirety. I confirm that the note above accurately reflects all work, treatment, procedures, and medical decision making performed by me. Departure Information Dispostion Being Evaluated By Surgeon Referrals Pepe Martinez M.D. (PCP) Patient Instructions My [facility] Problem Qualifiers Primary Impression: Diverticulitis of intestine with perforation Diverticulitis site: large intestine Diverticulitis bleeding: unspecified bleeding status Qualified Codes: K57.20 - Diverticulitis of large intestine with perforation and abscess without bleeding Additional Impression: Urinary tract infection Urinary tract infection type: acute cystitis Hematuria presence: without hematuria Qualified Codes: N30.00 - Acute cystitis without hematuria
[2017-07-08] MEDS ORDERED: SODIUM CHLORIDE 0.9% 1000ML 1,000 ML IV STA ×2 (12:55→14:12)
[2017-07-08] MEDS ORDERED: BICA50TA6 PO (13:04)
[2017-07-08 13:11] LABS: HEMATOCRIT 42.7 % (42-52); MEAN CELL VOLUME 89.1 fL (80-100); MEAN CORPUSCULAR HEMOGLOBIN 31.3 pg (25-34); MEAN CORPUSCULAR HGB CONC 35.1 g/dl (32-36); MEAN PLATELET VOLUME 11.2 fL (7.4-10.4); PLATELET COUNT 252 K/uL (130-400); RED CELL DISTRIBUTION WIDTH CV 13.3 % (11.5-14.5); RED CELL DISTRIBUTION WIDTH SD 43.6 fL (36.4-46.3); WHITE BLOOD COUNT 23.74 K/uL (4.8-10.8)
[2017-07-08] MEDS ORDERED: OPTIRAY 320 IV PRN (13:15)
--- NOTE | 2017-07-08 13:17 | DIAGNOSTIC IMAGING REPORT ---
CHEST ONE VIEW PORTABLE CLINICAL HISTORY: cough COMPARISON STUDY: 05/01/2016 FINDINGS: The cardiac and mediastinal contours are normal. There is no evidence of focal pulmonary consolidation. There is no evidence of failure. No pleural effusions are visualized.[ The ribs appear sclerotic consistent with osteoblastic metastasis. IMPRESSION: 1. No active disease in the chest 2. Osteoblastic skeletal metastasis Electronically signed by: Jarred Cui M.D. 07/08/2017 1:15 PM Dictated Date/Time: 07/08/2017 1:14 PM
[2017-07-08 13:24] LABS: ISTAT CREATININE 0.7 mg/dl (0.6-1.3); ISTAT IONIZED CALCIUM 1.06 mmol/l (1.12-1.32); ISTAT POTASSIUM 4.1 mEq/L (3.3-5.0)
[2017-07-08 13:36] LABS: BASO % 0.1 %; BASO ABS # 0.03 K/uL (0-0.2); IG# 0.13 K/uL (0.00-0.02); LYMPH % 5.3 %; LYMPH ABS # 1.25 K/uL (1.2-3.4); MONO % 6.4 %; MONO ABS # 1.52 K/uL (0.11-0.59); NEUT % 87.7 %; NEUT ABS # 20.81 K/uL (1.4-6.5)
[2017-07-08 13:44] LABS: ALBUMIN 3.3 gm/dl (3.4-5.0); CALCIUM 8.8 mg/dl (8.5-10.1); CREATININE 0.99 mg/dl (0.60-1.40); POTASSIUM 4.1 mmol/L (3.5-5.1)
[2017-07-08 13:46] LABS: TOTAL PROTEIN 8.3 gm/dl (6.4-8.2)
--- NOTE | 2017-07-08 14:04 | DIAGNOSTIC IMAGING REPORT ---
CT ABD/PELVIS IV CONTRAST ONLY CLINICAL HISTORY: Right lower quadrant and flank pain. COMPARISON STUDY: 01/27/2017 TECHNIQUE: Following the IV administration of 93 mL of Optiray-320, CT scan of the abdomen and pelvis was performed from the lung bases to the proximal femurs. Images are reviewed in the axial, sagittal, and coronal planes. IV contrast was administered without complication. A dose lowering technique was utilized adhering to the principles of ALARA. CT DOSE: 993.87 mGycm FINDINGS: Lower chest: There are coronary artery calcifications. There are no pleural effusions. There is no focal pulmonary consolidation. Liver: The contrast-enhanced liver is normal in size, contour, and attenuation. There is no intrahepatic biliary ductal dilatation. The hepatic veins and portal veins are patent. Gallbladder: Unremarkable. Spleen: The spleen is borderline enlarged measuring 12.6 cm Pancreas: Unremarkable. Adrenal glands: There is stable adrenal gland thickening Kidneys: There is a punctate right renal cortical calcification. There are small renal hypodensities measuring up to 1 cm in diameter. These statistically represent cysts. No ureteral or bladder calculi are visualized. There is mild bilateral perinephric stranding most pronounced on the right. Bowel: There is bowel wall thickening involving the cecum and proximal ascending colon. There are extraluminal gas bubbles consistent with a bowel perforation. There is a fluid collection located lateral to the cecum and ascending colon measuring 46 x 17 x 46 mm. This is felt to represent a pericolonic abscess. Medial to this is a second fluid collection measuring 21 mm. A second small abscess is suspected. The findings are likely secondary to either a perforated appendicitis or perforated cecal diverticulitis. There is a small umbilical hernia. A bowel loop partially protrudes into the hernia. This does not result in obstruction. Peritoneum: There are droplets of extraperitoneal air adjacent to the cecum as described above. Vasculature: The abdominal aorta is normal in course and caliber. Adenopathy: Mildly prominent ileocolic lymph nodes are likely reactive. Pelvic viscera: There is bladder wall thickening. Skeletal structures: There is a densely sclerotic T11 vertebral body. Additional skeletal sclerotic lesions are visualized. The findings are suspicious for blastic skeletal metastasis. IMPRESSION: 1. Inflammatory process at the level of the cecum and proximal ascending colon. There are extraluminal gas bubbles consistent with a bowel microperforation. There are 2 small fluid collections adjacent to the cecum consistent with small pericolonic abscesses. The findings are likely secondary to either a perforated appendicitis or perforated cecal diverticulitis. 2. Bladder wall thickening 3. Blastic skeletal metastasis Electronically signed by: Jarred Cui M.D. 07/08/2017 2:03 PM Dictated Date/Time: 07/08/2017 1:50 PM
[2017-07-08] MEDS ORDERED: PIPERACILLIN/TAZOBACTAM 4.5 GM/100ML D5W IV STA (14:12)
--- NOTE | 2017-07-08 14:58 | History and Physical ---
History & Physical Date & Time of Service: Jul 08, 2017 at 14:44 Chief Complaint: Pain In R Side Primary Care Physician: Pepe Martinez M.D. History of Present Illness 61-year-old male presented to the emergency department with several day history of right lower quadrant abdominal pain. I actually saw him in the clinic today due to concern for recurrent supraumbilical hernia as well as some right-sided abdominal pain. He was focally tender in the right lower quadrant but is difficult to appreciate whether this was musculoskeletal or peritonitis. We ordered a CT scan but apparently it was not good to be done for 6 days. He saw his oncologist and was referred to the emergency department. He has a history of robotic prostatectomy for prostate cancer, as well as a incisional hernia repair with mesh at his umbilicus performed in the past. Over the past few days he has had been having worsening right-sided abdominal pain. No fevers or chills. No nausea or vomiting, though he does not feel like he can eat, and he also cannot sleep because of the pain. He does notice a slight bulge of the superior portion of his prior hernia repair, and is unsure if this was related to his current pain. His white blood cell count was 26, and a CT scan showed likely perforated appendicitis. Past Medical/Surgical History Medical Problems: Prostate cancer, hypertension, history of urinary retention Past surgical history: Robotic prostatectomy, umbilical hernia repair with mesh Family History No pertinent family history Social History Smoking Status: Former Smoker Drug Use: none Allergies Coded Allergies: No Known Allergies (Unverified , 05/19/16) Home Medications Scheduled Bicalutamide (Casodex), 4 TAB PO DAILY Leuprolide Acetate (6 Month) (Lupron Depot), 45 MG IM DIRECTED Lisinopril (Zestril), 5 MG PO QAM Review of Systems 10 point review of systems negative except as above Physical Exam Vital Signs Date Time Temp Pulse Resp B/P (MAP) Pulse Ox O2 Delivery O2 Flow Rate FiO2 07/08/17 13:55 116 15 156/70 97 Room Air 07/08/17 13:09 136 07/08/17 12:36 36.6 139 20 115/70 98 Room Air General Appearance: WD/WN, no apparent distress Head: normocephalic, atraumatic Eyes: normal inspection, PERRL, EOMI, sclerae normal, + abnormal EOM ENT: normal ENT inspection, hearing grossly normal, TMs normal, pharynx normal Neck: supple, no adenopathy, thyroid normal, no JVD, no carotid bruits, trachea midline Respiratory/Chest: chest non-tender, lungs clear, normal breath sounds, no respiratory distress, no accessory muscle use Cardiovascular: regular rate, rhythm, no edema, no gallop, no JVD, no murmur, normal peripheral pulses Abdomen/GI: normal bowel sounds, soft, no organomegaly, no pulsatile mass, + tenderness (Tenderness to palpation in the right lower quadrant with localized peritonitis. 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, no motor/sensory deficits, alert, normal mood/affect, oriented x 3 Skin: normal color, warm/dry, no rash Lymphatic: no adenopathy Diagnostics Laboratory Results Results Past 24 Hours Test 07/08/17 13:00 07/08/17 13:09 Range/Units White Blood Count 23.74 4.8-10.8 K/uL Red Blood Count 4.79 4.7-6.1 M/uL Hemoglobin 15.0 14.0-18.0 g/dL Hematocrit 42.7 42-52 % Mean Corpuscular Volume 89.1 80-100 fL Mean Corpuscular Hemoglobin 31.3 25-34 pg Mean Corpuscular Hemoglobin Concent 35.1 32-36 g/dl Platelet Count 252 130-400 K/uL Mean Platelet Volume 11.2 7.4-10.4 fL Neutrophils (%) (Auto) 87.7 % Lymphocytes (%) (Auto) 5.3 % Monocytes (%) (Auto) 6.4 % Eosinophils (%) (Auto) 0.0 % Basophils (%) (Auto) 0.1 % Neutrophils # (Auto) 20.81 1.4-6.5 K/uL Lymphocytes # (Auto) 1.25 1.2-3.4 K/uL Monocytes # (Auto) 1.52 0.11-0.59 K/uL Eosinophils # (Auto) 0.00 0-0.5 K/uL Basophils # (Auto) 0.03 0-0.2 K/uL RDW Standard Deviation 43.6 36.4-46.3 fL RDW Coefficient of Variation 13.3 11.5-14.5 % Immature Granulocyte % (Auto) 0.5 % Immature Granulocyte # (Auto) 0.13 0.00-0.02 K/uL Urine Color DK YELLOW Urine Appearance CLOUDY CLEAR Urine pH 5.0 4.5-7.5 Urine Specific [place] 1.024 1.000-1.030 Urine Protein 1+ NEG Urine Glucose (UA) NEG NEG Urine Ketones TRACE NEG Urine Occult Blood TRACE NEG Urine Nitrite POS NEG Urine Bilirubin 1+ NEG Urine Urobilinogen POS NEG Urine Leukocyte Esterase SMALL NEG Urine WBC (Auto) >30 0-5 /hpf Urine RBC (Auto) 0-4 0-4 /hpf Urine Hyaline Casts (Auto) 5-10 0-5 /lpf Urine Epithelial Cells (Auto) 0-5 0-5 /lpf Urine Bacteria (Auto) 4+ NEG Sodium Level 129 136-145 mmol/L Potassium Level 4.1 3.5-5.1 mmol/L Chloride Level 96 98-107 mmol/L Carbon Dioxide Level 22 21-32 mmol/L Anion Gap 11.0 19.0 16-25 mmol/L Blood Urea Nitrogen 16 7-18 mg/dl Creatinine 0.99 0.60-1.40 mg/dl Est Creatinine Clear Calc Drug Dose 81.3 ml/min Estimated GFR () 93.6 Estimated GFR (Non- 80.7 BUN/Creatinine Ratio 16.3 10-20 Random Glucose 220 70-99 mg/dl Calcium Level 8.8 8.5-10.1 mg/dl Total Bilirubin 1.3 0.2-1 mg/dl Direct Bilirubin 0.6 0-0.2 mg/dl Aspartate Amino Transf (AST/SGOT) 7 15-37 U/L Alanine Aminotransferase (ALT/SGPT) 11 12-78 U/L Alkaline Phosphatase 98 45-117 U/L Total Creatine Kinase 19 39-308 U/L Total Protein 8.3 6.4-8.2 gm/dl Albumin 3.3 3.4-5.0 gm/dl Lipase 50 73-393 U/L Bedside Hemoglobin 16.0 14.0-18.0 g/dl Bedside Hematocrit 47 42-52 % Bedside Sodium 133 135-144 mEq/L Bedside Potassium 4.1 3.3-5.0 mEq/L Bedside Chloride 95 101-112 mEq/L Bedside Total CO2 23 24-31 mEq/l Bedside Blood Urea Nitrogen 16 7-18 mg/dl Bedside Creatinine 0.7 0.6-1.3 mg/dl Bedside Glucose (other) 231 70-99 mg/dl Bedside Ionized Calcium (Luis) 1.06 1.12-1.32 mmol/l Diagnostic Radiology CT ABD/PELVIS IV CONTRAST ONLY CLINICAL HISTORY: Right lower quadrant and flank pain. COMPARISON STUDY: 01/27/2017 TECHNIQUE: Following the IV administration of 93 mL of Optiray-320, CT scan of the abdomen and pelvis was performed from the lung bases to the proximal femurs. Images are reviewed in the axial, sagittal, and coronal planes. IV contrast was administered without complication. A dose lowering technique was utilized adhering to the principles of ALARA. CT DOSE: 993.87 mGycm FINDINGS: Lower chest: There are coronary artery calcifications. There are no pleural effusions. There is no focal pulmonary consolidation. Liver: The contrast-enhanced liver is normal in size, contour, and attenuation. There is no intrahepatic biliary ductal dilatation. The hepatic veins and portal veins are patent. Gallbladder: Unremarkable. Spleen: The spleen is borderline enlarged measuring 12.6 cm Pancreas: Unremarkable. Adrenal glands: There is stable adrenal gland thickening Kidneys: There is a punctate right renal cortical calcification. There are small renal hypodensities measuring up to 1 cm in diameter. These statistically represent cysts. No ureteral or bladder calculi are visualized. There is mild bilateral perinephric stranding most pronounced on the right. Bowel: There is bowel wall thickening involving the cecum and proximal ascending colon. There are extraluminal gas bubbles consistent with a bowel perforation. There is a fluid collection located lateral to the cecum and ascending colon measuring 46 x 17 x 46 mm. This is felt to represent a pericolonic abscess. Medial to this is a second fluid collection measuring 21 mm. A second small abscess is suspected. The findings are likely secondary to either a perforated appendicitis or perforated cecal diverticulitis. There is a small umbilical hernia. A bowel loop partially protrudes into the hernia. This does not result in obstruction. Peritoneum: There are droplets of extraperitoneal air adjacent to the cecum as described above. Vasculature: The abdominal aorta is normal in course and caliber. Adenopathy: Mildly prominent ileocolic lymph nodes are likely reactive. Pelvic viscera: There is bladder wall thickening. Skeletal structures: There is a densely sclerotic T11 vertebral body. Additional skeletal sclerotic lesions are visualized. The findings are suspicious for blastic skeletal metastasis. IMPRESSION: 1. Inflammatory process at the level of the cecum and proximal ascending colon. There are extraluminal gas bubbles consistent with a bowel microperforation. There are 2 small fluid collections adjacent to the cecum consistent with small pericolonic abscesses. The findings are likely secondary to either a perforated appendicitis or perforated cecal diverticulitis. 2. Bladder wall thickening 3. Blastic skeletal metastasis Impression Assessment and Plan 61-year-old male with perforated appendicitis. We discussed his options and at this point I think we should pursue nonoperative management with IV antibiotics , and he agreed. Admission to [facility] We will continue IV antibiotics until white blood cell count normalizes and the patient is afebrile, then transition to oral antibiotics for 2 weeks Patient may have clear liquids today, will advance to regular diet if doing well tomorrow Daily labs If condition fails to improve over the next few days then we may consider repeat imaging for possible abscess formation that may require drainage, or if he clinically declines then may consider exploration or washout ASA Classification: ASA Class II Resuscitation Status VTE Prophylaxis Will order VTE Prophylaxis: Yes
[2017-07-08] MEDS ORDERED: DiphenhydrAMINE HCL 50 MG/ML VIAL IV PRN (15:00)
[2017-07-08] MEDS ORDERED: ONDANSETRON INJ 2 MG/ML 2 ML VIAL IV PRN (15:00)
[2017-07-08] MEDS ORDERED: MoRPHine SULFATE 2 MG/ML CARP IV PRN ×2 (15:00)
[2017-07-08] MEDS ORDERED: OXYCODONE/ACETAMINOPHEN 5-325 TAB PO PRN (15:00)
[2017-07-08 16:45] VITALS: BP 130/75; PULSE 115; TEMP 37.6; O2SAT 93
[2017-07-08] MEDS ORDERED: IV FLUIDS COMPLETED PRN (16:45)
[2017-07-08] MEDS: LACTATED RINGER'S 1000ML 1,000 ML IV SCH (17:39)
[2017-07-08] MEDS: KETOROLAC TROMETHAMINE 15 MG/ML VIAL IV. SCH ×2 (17:44→23:27)
[2017-07-08 17:45] VITALS: O2SAT 93; Ht 180.3 cm; Wt 78.0 kg
[2017-07-08 18:00] VITALS: O2SAT 93
[2017-07-08] MEDS ORDERED: NURSING VERBAL MED ORDER ONE (18:30)
[2017-07-08] MEDS: OXYCODONE/ACETAMINOPHEN 5-325 TAB PO PRN (19:00)
[2017-07-08] MEDS: LISINOPRIL 5 MG TAB PO SCH (21:02)
[2017-07-08] MEDS: PIPERACILL/TAZOBAC IV 3.375 GM in DEXTROSE 5% 100ML 100 ML IV SCH (21:44)
[2017-07-08 22:52] VITALS: BP 103/68; PULSE 112; TEMP 37.5; O2SAT 93
[2017-07-09] MEDS: LACTATED RINGER'S 1000ML 1,000 ML IV SCH ×3 (01:03→17:24)
[2017-07-09] MEDS: PIPERACILL/TAZOBAC IV 3.375 GM in DEXTROSE 5% 100ML 100 ML IV SCH (05:42)
[2017-07-09] MEDS: KETOROLAC TROMETHAMINE 15 MG/ML VIAL IV. SCH ×4 (05:42→23:32)
--- NOTE | 2017-07-09 07:29 | Surgery Progress Note ---
Surgery Progress Note Date of Service Jul 09, 2017. Subjective + feeling well (50% improvement overnight), + flatus, + diet (clears), No bowel movement, No nausea Objective Vital Signs: Date Time Temp Pulse Resp B/P (MAP) Pulse Ox O2 Delivery O2 Flow Rate FiO2 07/08/17 23:30 Room Air 07/08/17 22:52 37.5 112 17 103/68 (80) 93 Room Air 07/08/17 18:00 93 Room Air 07/08/17 17:45 93 Room Air 07/08/17 16:45 37.6 115 17 130/75 (93) 93 Room Air 07/08/17 16:02 76 119/65 98 Room Air 07/08/17 13:55 116 15 156/70 97 Room Air 07/08/17 13:09 136 07/08/17 12:36 36.6 139 20 115/70 98 Room Air Abdomen: soft, + tenderness (mild RLQ, no guarding) Laboratory Results: Results Past 24 Hours Test 07/08/17 13:00 07/08/17 13:09 07/09/17 04:44 Range/Units White Blood Count 23.74 4.8-10.8 K/uL Red Blood Count 4.79 4.7-6.1 M/uL Hemoglobin 15.0 14.0-18.0 g/dL Hematocrit 42.7 42-52 % Mean Corpuscular Volume 89.1 80-100 fL Mean Corpuscular Hemoglobin 31.3 25-34 pg Mean Corpuscular Hemoglobin Concent 35.1 32-36 g/dl Platelet Count 252 130-400 K/uL Mean Platelet Volume 11.2 7.4-10.4 fL Neutrophils (%) (Auto) 87.7 % Lymphocytes (%) (Auto) 5.3 % Monocytes (%) (Auto) 6.4 % Eosinophils (%) (Auto) 0.0 % Basophils (%) (Auto) 0.1 % Neutrophils # (Auto) 20.81 1.4-6.5 K/uL Lymphocytes # (Auto) 1.25 1.2-3.4 K/uL Monocytes # (Auto) 1.52 0.11-0.59 K/uL Eosinophils # (Auto) 0.00 0-0.5 K/uL Basophils # (Auto) 0.03 0-0.2 K/uL RDW Standard Deviation 43.6 36.4-46.3 fL RDW Coefficient of Variation 13.3 11.5-14.5 % Immature Granulocyte % (Auto) 0.5 % Immature Granulocyte # (Auto) 0.13 0.00-0.02 K/uL Urine Color DK YELLOW Urine Appearance CLOUDY CLEAR Urine pH 5.0 4.5-7.5 Urine Specific [place] 1.024 1.000-1.030 Urine Protein 1+ NEG Urine Glucose (UA) NEG NEG Urine Ketones TRACE NEG Urine Occult Blood TRACE NEG Urine Nitrite POS NEG Urine Bilirubin 1+ NEG Urine Urobilinogen POS NEG Urine Leukocyte Esterase SMALL NEG Urine WBC (Auto) >30 0-5 /hpf Urine RBC (Auto) 0-4 0-4 /hpf Urine Hyaline Casts (Auto) 5-10 0-5 /lpf Urine Epithelial Cells (Auto) 0-5 0-5 /lpf Urine Bacteria (Auto) 4+ NEG Sodium Level 129 136-145 mmol/L Potassium Level 4.1 3.5-5.1 mmol/L Chloride Level 96 98-107 mmol/L Carbon Dioxide Level 22 21-32 mmol/L Anion Gap 11.0 19.0 16-25 mmol/L Blood Urea Nitrogen 16 7-18 mg/dl Creatinine 0.99 0.60-1.40 mg/dl Est Creatinine Clear Calc Drug Dose 81.3 ml/min Estimated GFR () 93.6 Estimated GFR (Non- 80.7 BUN/Creatinine Ratio 16.3 10-20 Random Glucose 220 70-99 mg/dl Calcium Level 8.8 8.5-10.1 mg/dl Total Bilirubin 1.3 0.2-1 mg/dl Direct Bilirubin 0.6 0-0.2 mg/dl Aspartate Amino Transf (AST/SGOT) 7 15-37 U/L Alanine Aminotransferase (ALT/SGPT) 11 12-78 U/L Alkaline Phosphatase 98 45-117 U/L Total Creatine Kinase 19 39-308 U/L Total Protein 8.3 6.4-8.2 gm/dl Albumin 3.3 3.4-5.0 gm/dl Lipase 50 73-393 U/L Bedside Hemoglobin 16.0 14.0-18.0 g/dl Bedside Hematocrit 47 42-52 % Bedside Sodium 133 135-144 mEq/L Bedside Potassium 4.1 3.3-5.0 mEq/L Bedside Chloride 95 101-112 mEq/L Bedside Total CO2 23 24-31 mEq/l Bedside Blood Urea Nitrogen 16 7-18 mg/dl Bedside Creatinine 0.7 0.6-1.3 mg/dl Bedside Glucose (other) 231 70-99 mg/dl Bedside Ionized Calcium (Luis) 1.06 1.12-1.32 mmol/l Microbiology Results 07/08/17 Urine Culture, Received Pending Assessment & Plan perf appendicitis improved with IV abx WBC pending Tmax 37.6 advance diet
[2017-07-09 07:49] VITALS: BP 104/68; PULSE 90; TEMP 36.3; O2SAT 97
[2017-07-09 08:03] LABS: HEMATOCRIT 37.7 % (42-52); MEAN CELL VOLUME 87.9 fL (80-100); MEAN CORPUSCULAR HEMOGLOBIN 30.3 pg (25-34); MEAN CORPUSCULAR HGB CONC 34.5 g/dl (32-36); MEAN PLATELET VOLUME 11.2 fL (7.4-10.4); PLATELET COUNT 172 K/uL (130-400); RED CELL DISTRIBUTION WIDTH CV 13.6 % (11.5-14.5); RED CELL DISTRIBUTION WIDTH SD 43.2 fL (36.4-46.3); WHITE BLOOD COUNT 18.79 K/uL (4.8-10.8)
[2017-07-09 08:19] VITALS: O2SAT 97
[2017-07-09 08:29] LABS: BASO % 0.1 %; BASO ABS # 0.02 K/uL (0-0.2); IG# 0.07 K/uL (0.00-0.02); LYMPH % 4.5 %; LYMPH ABS # 0.84 K/uL (1.2-3.4); MONO % 3.9 %; MONO ABS # 0.74 K/uL (0.11-0.59); NEUT % 91.1 %; NEUT ABS # 17.12 K/uL (1.4-6.5)
[2017-07-09 08:44] LABS: CALCIUM 7.9 mg/dl (8.5-10.1); CREATININE 0.83 mg/dl (0.60-1.40); POTASSIUM 3.4 mmol/L (3.5-5.1)
[2017-07-09] MEDS ORDERED: ENZALUTAMIDE 40 MG CAP PO SCH (09:00)
[2017-07-09] MEDS ORDERED: LISINOPRIL 5 MG TAB PO SCH (09:00)
[2017-07-09] MEDS ORDERED: BICALUTAMIDE 50 MG TAB PO SCH (09:00)
[2017-07-09] MEDS ORDERED: AMOX875T PO (11:43)
--- NOTE | 2017-07-09 11:44 | Discharge Instructions ---
Discharge Instructions Date of Service Jul 09, 2017. Admission Reason for Admission: Appendicitis With Perforation Discharge Discharge Diagnosis / Problem: appendicitis Discharge Goals Goal(s): Decrease discomfort Activity Recommendations Activity Limitations: resume your previous activity . Instructions / Follow-Up Instructions / Follow-Up Dr. Farfan in 1-2 weeks, call [phone] to schedule or if you have any questions Current Hospital Diet Patient's current hospital diet: Full Liquid Diet Discharge Diet Recommended Diet: Regular Diet Pending Studies Studies pending at discharge: no Medical Emergencies . Who to Call and When: Medical Emergencies: If at any time you feel your situation is an emergency, please call 911 immediately. . Non-Emergent Contact Non-Emergency issues call your: Surgeon Call Non-Emergent contact if: you have a fever, temperature is above 101.5, your pain is not controlled, you have any medication questions . "Provider Documentation" section prepared by Ernesto Chery. .
[2017-07-09 15:27] VITALS: BP 125/52; PULSE 93; TEMP 37; O2SAT 96
[2017-07-09] MEDS: ENZALUTAMIDE 40 MG CAP PO SCH (15:44)
[2017-07-09] MEDS ORDERED: IV FLUIDS COMPLETED PRN (16:15)
[2017-07-09 17:41] VITALS: BP 134/65; PULSE 91
[2017-07-09] MEDS: LISINOPRIL 5 MG TAB PO SCH (17:43)
[2017-07-09 23:15] VITALS: BP 119/67; PULSE 98; TEMP 36.8; O2SAT 95
[2017-07-10] MEDS: LACTATED RINGER'S 1000ML 1,000 ML IV SCH ×3 (00:53→19:47)
[2017-07-10] MEDS: KETOROLAC TROMETHAMINE 15 MG/ML VIAL IV. SCH ×4 (05:28→23:24)
[2017-07-10 07:42] VITALS: BP 98/59; PULSE 96; TEMP 37.1; O2SAT 94
--- NOTE | 2017-07-10 09:25 | Surgery Progress Note ---
Surgery Progress Note Date of Service Jul 10, 2017. Subjective Post OP Day: HD 3 + feeling well, + complaints (RLQ pain), + flatus, + diet (OK), No nausea, No vomiting Objective Vital Signs: Date Time Temp Pulse Resp B/P (MAP) Pulse Ox O2 Delivery O2 Flow Rate FiO2 07/10/17 07:42 37.1 96 16 98/59 (72) 94 Room Air 07/09/17 23:39 Room Air 07/09/17 23:15 36.8 98 18 119/67 (84) 95 Room Air 07/09/17 17:41 91 134/65 (88) 07/09/17 15:38 Room Air 07/09/17 15:27 37.0 93 19 125/52 (76) 96 Room Air General Appearance: WD/WN, no apparent distress Head: normocephalic, atraumatic Neck: supple, trachea midline Respiratory/Chest: lungs clear Cardiovascular: regular rate, rhythm Abdomen: normal bowel sounds, non distended, soft, + tenderness Extremities: non-tender, no pedal edema Assessment & Plan perforated appendicitis -IV abx -decrease IVF -replace K+ -doing OK with diet -still w/pain -WBC decreasing, no fevers -con't treatment
[2017-07-10] MEDS: POTASSIUM CHLORIDE 20 MEQ TABCR PO SCH ×2 (14:20→20:45)
[2017-07-10 15:25] VITALS: O2SAT 94
[2017-07-10] MEDS: ENZALUTAMIDE 40 MG CAP PO SCH (15:30)
[2017-07-10 15:34] VITALS: BP 157/80; PULSE 102; TEMP 36.7; O2SAT 94
[2017-07-10] MEDS: LISINOPRIL 5 MG TAB PO SCH (16:34)
[2017-07-10 23:20] VITALS: BP 151/74; PULSE 96; TEMP 36.6; O2SAT 94
[2017-07-11] MEDS: KETOROLAC TROMETHAMINE 15 MG/ML VIAL IV. SCH ×2 (05:46→11:33)
[2017-07-11 07:14] LABS: BASO % 0.1 %; BASO ABS # 0.01 K/uL (0-0.2); EOS % 0.3 %; EOS ABS # 0.03 K/uL (0-0.5); HEMATOCRIT 32.4 % (42-52); HEMOGLOBIN 10.7 g/dL (14.0-18.0); IG# 0.04 K/uL (0.00-0.02); LYMPH % 7.5 %; LYMPH ABS # 0.69 K/uL (1.2-3.4); MEAN CELL VOLUME 88.3 fL (80-100); MEAN CORPUSCULAR HEMOGLOBIN 29.2 pg (25-34); MEAN PLATELET VOLUME 11.3 fL (7.4-10.4); MONO ABS # 0.37 K/uL (0.11-0.59); NEUT % 87.7 %; NEUT ABS # 8.04 K/uL (1.4-6.5); PLATELET COUNT 198 K/uL (130-400); RED CELL DISTRIBUTION WIDTH CV 13.4 % (11.5-14.5); RED CELL DISTRIBUTION WIDTH SD 43.4 fL (36.4-46.3); WHITE BLOOD COUNT 9.18 K/uL (4.8-10.8)
[2017-07-11 07:19] VITALS: BP 123/72; PULSE 85; TEMP 36.5; O2SAT 95
[2017-07-11 08:03] LABS: CALCIUM 7.6 mg/dl (8.5-10.1); CREATININE 0.45 mg/dl (0.60-1.40); POTASSIUM 3.2 mmol/L (3.5-5.1)
[2017-07-11] MEDS: LACTATED RINGER'S 1000ML 1,000 ML IV SCH (08:34)
[2017-07-11] MEDS: POTASSIUM CHLORIDE 20 MEQ TABCR PO SCH ×2 (08:34→20:33)
--- NOTE | 2017-07-11 10:23 | Surgery Progress Note ---
Surgery Progress Note Date of Service Jul 11, 2017. Subjective Post OP Day: HD 4 + feeling well (better), + complaints (still with right flank pain, improved), + bowel movement, + flatus, + diet (eating OK), No nausea, No vomiting Objective Vital Signs: Date Time Temp Pulse Resp B/P (MAP) Pulse Ox O2 Delivery O2 Flow Rate FiO2 07/11/17 07:52 Room Air 07/11/17 07:19 36.5 85 19 123/72 (89) 95 Room Air 07/10/17 23:32 Room Air 07/10/17 23:20 36.6 96 18 151/74 (99) 94 Room Air 07/10/17 15:34 36.7 102 18 157/80 (105) 94 Room Air 07/10/17 15:25 94 Room Air General Appearance: WD/WN, no apparent distress Head: normocephalic, atraumatic Neck: supple, trachea midline Respiratory/Chest: lungs clear Cardiovascular: regular rate, rhythm Abdomen: normal bowel sounds, non distended, soft, + tenderness (moderate) Extremities: non-tender, no pedal edema Laboratory Results: Results Past 24 Hours Test 07/11/17 06:43 Range/Units White Blood Count 9.18 4.8-10.8 K/uL Red Blood Count 3.67 4.7-6.1 M/uL Hemoglobin 10.7 14.0-18.0 g/dL Hematocrit 32.4 42-52 % Mean Corpuscular Volume 88.3 80-100 fL Mean Corpuscular Hemoglobin 29.2 25-34 pg Mean Corpuscular Hemoglobin Concent 33.0 32-36 g/dl Platelet Count 198 130-400 K/uL Mean Platelet Volume 11.3 7.4-10.4 fL Neutrophils (%) (Auto) 87.7 % Lymphocytes (%) (Auto) 7.5 % Monocytes (%) (Auto) 4.0 % Eosinophils (%) (Auto) 0.3 % Basophils (%) (Auto) 0.1 % Neutrophils # (Auto) 8.04 1.4-6.5 K/uL Lymphocytes # (Auto) 0.69 1.2-3.4 K/uL Monocytes # (Auto) 0.37 0.11-0.59 K/uL Eosinophils # (Auto) 0.03 0-0.5 K/uL Basophils # (Auto) 0.01 0-0.2 K/uL RDW Standard Deviation 43.4 36.4-46.3 fL RDW Coefficient of Variation 13.4 11.5-14.5 % Immature Granulocyte % (Auto) 0.4 % Immature Granulocyte # (Auto) 0.04 0.00-0.02 K/uL Sodium Level 137 136-145 mmol/L Potassium Level 3.2 3.5-5.1 mmol/L Chloride Level 106 98-107 mmol/L Carbon Dioxide Level 27 21-32 mmol/L Anion Gap 4.0 3-11 mmol/L Blood Urea Nitrogen 12 7-18 mg/dl Creatinine 0.45 0.60-1.40 mg/dl Est Creatinine Clear Calc Drug Dose 178.9 ml/min Estimated GFR () 139.6 Estimated GFR (Non- 120.4 BUN/Creatinine Ratio 27.4 10-20 Random Glucose 115 70-99 mg/dl Calcium Level 7.6 8.5-10.1 mg/dl Assessment & Plan perforated appendicitis -IV abx -change IVF, add K+ -replace K+; 3.2 today -doing OK with diet -still w/pain -WBC decreasing, no fevers -con't treatment -possible repeat CT scan early next week
[2017-07-11] MEDS: D5NSS + 20MEQ KCL 1,000 ML IV SCH ×2 (11:31→23:09)
[2017-07-11] MEDS: ENZALUTAMIDE 40 MG CAP PO SCH (15:42)
[2017-07-11 15:50] VITALS: O2SAT 97
[2017-07-11 15:54] VITALS: BP 144/79; PULSE 79; TEMP 36.9; O2SAT 97
[2017-07-11] MEDS: LISINOPRIL 5 MG TAB PO SCH (16:47)
[2017-07-11 22:50] VITALS: BP 137/78; PULSE 88; TEMP 37.1; O2SAT 95
[2017-07-11] MEDS: OXYCODONE/ACETAMINOPHEN 5-325 TAB PO PRN (23:08)
[2017-07-12] MEDS: OXYCODONE/ACETAMINOPHEN 5-325 TAB PO PRN ×2 (03:36→09:16)
[2017-07-12 08:03] LABS: CALCIUM 7.5 mg/dl (8.5-10.1); CREATININE 0.43 mg/dl (0.60-1.40); POTASSIUM 3.7 mmol/L (3.5-5.1)
[2017-07-12 08:18] VITALS: BP 145/81; PULSE 74; TEMP 36.3; O2SAT 97
[2017-07-12] MEDS ORDERED: PIPERACILL/TAZOBAC CONSULT ACTIVE PRN (08:45)
[2017-07-12] MEDS ORDERED: OPTIRAY 320 IV PRN (08:45)
--- NOTE | 2017-07-12 08:46 | Surgery Progress Note ---
Surgery Progress Note Date of Service Jul 12, 2017. Subjective not feeling well, not eating, some abdominal discomfort and diarrhea Objective Vital Signs: Date Time Temp Pulse Resp B/P (MAP) Pulse Ox O2 Delivery O2 Flow Rate FiO2 07/12/17 08:18 36.3 74 22 145/81 (102) 97 Room Air 07/12/17 07:00 Room Air 07/11/17 23:05 Room Air 07/11/17 22:50 37.1 88 18 137/78 (97) 95 Room Air 07/11/17 15:54 36.9 79 16 144/79 (100) 97 Room Air 07/11/17 15:50 97 Abdomen: + distended (slightly), + tenderness (RLQ) Laboratory Results: Results Past 24 Hours Test 07/12/17 06:43 Range/Units Sodium Level 140 136-145 mmol/L Potassium Level 3.7 3.5-5.1 mmol/L Chloride Level 110 98-107 mmol/L Carbon Dioxide Level 25 21-32 mmol/L Anion Gap 5.0 3-11 mmol/L Blood Urea Nitrogen 10 7-18 mg/dl Creatinine 0.43 0.60-1.40 mg/dl Est Creatinine Clear Calc Drug Dose 187.2 ml/min Estimated GFR () 142.2 Estimated GFR (Non- 122.7 BUN/Creatinine Ratio 22.2 10-20 Random Glucose 124 70-99 mg/dl Calcium Level 7.5 8.5-10.1 mg/dl Assessment & Plan perf appendicitis WBC normalizing but not much clinical improvement, will repeat CT, check for C. diff
[2017-07-12] MEDS ORDERED: PIPERACILL/TAZOBAC IV 4.5 GM in DEXTROSE 5% 100ML 100 ML IV ONE (09:00)
[2017-07-12] MEDS: POTASSIUM CHLORIDE 20 MEQ TABCR PO SCH (09:16)
[2017-07-12] MEDS: D5NSS + 20MEQ KCL 1,000 ML IV SCH (13:09)
[2017-07-12] MEDS: PIPERACILL/TAZOBAC IV 3.375 GM in DEXTROSE 5% 100ML 100 ML IV SCH ×2 (14:05→22:05)
--- NOTE | 2017-07-12 14:08 | DIAGNOSTIC IMAGING REPORT ---
ABD/PELVIS IV AND ORAL CONT CLINICAL HISTORY: 61 years-old Male presenting with f/u perf appendicitis, right-sided pain. TECHNIQUE: Multidetector CT of the abdomen and pelvis was performed after the administration of oral and intravenous contrast. IV contrast: 118 mL of Optiray 320. A dose lowering technique was used consistent with the principles of ALARA (as low as reasonably achievable). COMPARISON: 07/08/2017. CT DOSE (mGy.cm): The estimated cumulative dose is 1022.93 mGy.cm. FINDINGS: Severity Of Illness Coordinator topogram: Unremarkable. Lung bases: Bandlike opacity at the right lung base new from most recent prior and likely atelectasis. Dependent consolidation, right greater than left with associated small right and trace left pleural effusions, also likely atelectasis. Normal heart size. Coronary artery and aortic valve calcification. No pericardial effusion. Liver: Normal morphology. No liver lesion. Patent hepatic vasculature. Biliary: No intrahepatic or extrahepatic biliary ductal dilatation. Normal gallbladder. Pancreas: Mild parenchymal atrophy. Spleen: Normal. Adrenal glands: Normal. Kidneys and ureters: Several tiny hypodensities in the kidneys indeterminate but likely small cysts. Parenchymal calcification versus punctate renal calculus noted in the interpolar region of the right kidney. No other potential calculi. Renovascular calcification noted. No hydronephrosis. Mild urothelial thickening as on prior exams. Nonspecific mild perinephric fat stranding. The ureters are nondilated. Bladder: Incompletely evaluated secondary to underdistention. Circumferential wall thickening suggested. Pelvic organs: The patient is status post prostatectomy. No suspicious nodular enhancing soft tissue at the ureteral anastomosis. Bowel: Diverticulosis of the descending and proximal sigmoid colon. Mild pericolonic fat stranding along the cecum and ascending colon. Interval increase in size of the fluid collection subjacent to the abdominal wall immediately lateral to the cecum. This now measures 6.7 x 4.1 cm in maximal axial dimensions, previously 4.6 x 1.7 cm. The second previously described collection, which may encompass the appendiceal base, is unchanged in size measuring approximately 2 cm. This inflammatory changes centered at the appendix with presumed perforation the appendix. The appendiceal anatomy in this region was best demonstrated on prior CT from 03/18/2016. Adjacent peritoneal thickening. Edema of the overlying abdominal wall musculature. No bowel obstruction. Peritoneal cavity: Right lower quadrant collection as previously noted. Trace free fluid in the right paracolic gutter. No gross free intraperitoneal gas, however, trace foci of pneumoperitoneum, which are likely sequestered by inflamed omentum and mesentery noted in the right lower quadrant. Lymph nodes: No enlarged lymph nodes in the abdomen or pelvis. Vasculature: Extensive calcified and noncalcified atherosclerotic plaque throughout the normal caliber abdominal aorta. This affects the origins of several branch vessels. Redemonstration of complete or near complete occlusion of the left common iliac artery with distal reconstitution. Complete or near-complete occlusion of the mid to distal left internal iliac artery also noted. IVC patent. Abdominal wall: Extensive subcutaneous edema focally along the right lateral abdominal wall overlying the area of the inflammation of the abdominal wall musculature and subjacent abscess. Musculoskeletal: Degenerative changes of the spine. Multifocal sclerotic lesions consistent with known metastatic disease. These are unchanged since the most recent prior exam though increased in sclerosis since prior CT from February. IMPRESSION: 1. Interval increase in size of the periappendiceal abscess, which now measures 6.7 x 4.1 cm. This would likely be amenable to percutaneous drainage if clinically indicated. Overlying abdominal wall inflammatory change and cellulitis. 2. Findings again consistent with acute complicated appendicitis with sequestered perforation. No free intra-abdominal gas. 3. Postsurgical changes of prostatectomy. 4. Chronic urothelial thickening could relate to prior chronic bladder outlet obstruction and/or reflux uropathy. Presumably, the patient does not have an active urinary tract infection to suppose upper tract involvement. 5. Increased sclerosis of the known metastatic osseous lesions since prior CT in February though stable since most recent prior on 07/08/2017. 6. Increased bibasilar atelectasis. 7. 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 The report will be called/faxed according to standard departmental protocol. Electronically signed by: Terry Loera M.D. 07/12/2017 2:07 PM Dictated Date/Time: 07/12/2017 1:52 PM
[2017-07-12 15:09] VITALS: BP 149/76; PULSE 81; TEMP 36.5; O2SAT 98
[2017-07-12] MEDS: ENZALUTAMIDE 40 MG CAP PO SCH (15:33)
[2017-07-12] MEDS: LISINOPRIL 5 MG TAB PO SCH (17:47)
[2017-07-12 23:30] VITALS: BP 131/74; PULSE 86; TEMP 36.7; O2SAT 94
[2017-07-13] MEDS: D5NSS + 20MEQ KCL 1,000 ML IV SCH (02:32)
[2017-07-13] MEDS: OXYCODONE/ACETAMINOPHEN 5-325 TAB PO PRN ×3 (02:36→18:33)
[2017-07-13] MEDS: PIPERACILL/TAZOBAC IV 3.375 GM in DEXTROSE 5% 100ML 100 ML IV SCH ×3 (05:28→21:52)
[2017-07-13 06:54] VITALS: BP 146/75; PULSE 85; TEMP 37; O2SAT 95
[2017-07-13 07:34] LABS: CREATININE 0.41 mg/dl (0.60-1.40)
[2017-07-13 08:40] VITALS: BP 159/83; PULSE 87; TEMP 36.9; O2SAT 96
[2017-07-13 10:23] VITALS: BP 146/78; PULSE 80; TEMP 36.9; O2SAT 97
--- NOTE | 2017-07-13 10:58 | DIAGNOSTIC IMAGING REPORT ---
ABSCESS DRAINAGE GUIDANCE CLINICAL HISTORY: 61 years-old Male presenting with RLQ ABSCESS DRAINAGE. TECHNIQUE: Real-time grayscale and limited color Doppler ultrasound imaging of the right lower quadrant was performed for ultrasound-guided percutaneous catheter placement for abscess drainage. COMPARISON: CT from 07/12/2017. PROCEDURE: The risks, benefits, and alternatives of the procedure were discussed with the patient. Written informed consent was obtained. A timeout was performed to confirm patient identity. The patient was placed supine in ultrasound, and the 6 cm abscess was localized by ultrasound immediately subjacent to the abdominal wall musculature in the right lower quadrant. The right lower quadrant was prepped and draped in the usual sterile fashion. 1% lidocaine was administered to the skin and deeper soft tissue. Using a Seldinger technique, initial access to the abscess with a 21-gauge AccuStick needle under ultrasound guidance. Subsequently, a 0.018" guidewire was advanced through the needle into the collection. The needle was then removed over the wire, and a coaxial sheath was placed into the collection over the wire. The wire and stiffening cannula were removed. Subsequently, a 0.038" guidewire was passed into the collection, and the sheath was removed. An 8 Romansh dilator was used to prepare the tract. Finally, a 10 Romansh pigtail catheter was passed into the collection over the guidewire. The guidewire was removed, and the catheter was secured. An accordion suction device was placed. Purulent liquid was noted. The patient tolerated the procedure well. IMPRESSION: Successful fine-needle ultrasound-guided percutaneous catheter placement for abscess drainage. A three-way stopcock was placed should flushing be required. Electronically signed by: Terry Loera M.D. 07/13/2017 10:57 AM Dictated Date/Time: 07/13/2017 10:50 AM
--- NOTE | 2017-07-13 11:09 | Surgery Progress Note ---
Surgery Progress Note Date of Service Jul 13, 2017. Subjective 61-year-old male admitted with perforated appendicitis. Repeat CT scan yesterday showed increased size of his right lower quadrant abscess. Underwent percutaneous drainage this morning and has a drain with purulent drainage in it. Overall feels fine, no fevers, no changes. Objective Vital Signs: Date Time Temp Pulse Resp B/P (MAP) Pulse Ox O2 Delivery O2 Flow Rate FiO2 07/13/17 10:23 36.9 80 16 146/78 (100) 97 Room Air 07/13/17 08:40 36.9 87 16 159/83 (108) 96 07/13/17 07:10 Room Air 07/13/17 06:54 37.0 85 18 146/75 (98) 95 Room Air 07/12/17 23:30 36.7 86 18 131/74 (93) 94 Room Air 07/12/17 22:50 Room Air 07/12/17 15:30 Room Air 07/12/17 15:09 36.5 81 18 149/76 (100) 98 Room Air Physical Exam: YISSEL drainage (Purulent) General Appearance: WD/WN, no apparent distress Abdomen: normal bowel sounds, non distended, soft, no organomegaly, no pulsatile mass, + tenderness (Tenderness to palpation right lower quadrant) Laboratory Results: Results Past 24 Hours Test 07/13/17 06:42 Range/Units Creatinine 0.41 0.60-1.40 mg/dl Est Creatinine Clear Calc Drug Dose 196.3 ml/min Estimated GFR () 145.0 Estimated GFR (Non- 125.1 Microbiology Results 07/13/17 C.difficile Toxin B Gene (PCR) - Final, Complete No C. difficile toxin B gene detected Diagnostic Interpretation: ABSCESS DRAINAGE GUIDANCE CLINICAL HISTORY: 61 years-old Male presenting with RLQ ABSCESS DRAINAGE. TECHNIQUE: Real-time grayscale and limited color Doppler ultrasound imaging of the right lower quadrant was performed for ultrasound-guided percutaneous catheter placement for abscess drainage. COMPARISON: CT from 07/12/2017. PROCEDURE: The risks, benefits, and alternatives of the procedure were discussed with the patient. Written informed consent was obtained. A timeout was performed to confirm patient identity. The patient was placed supine in ultrasound, and the 6 cm abscess was localized by ultrasound immediately subjacent to the abdominal wall musculature in the right lower quadrant. The right lower quadrant was prepped and draped in the usual sterile fashion. 1% lidocaine was administered to the skin and deeper soft tissue. Using a Seldinger technique, initial access to the abscess with a 21-gauge AccuStick needle under ultrasound guidance. Subsequently, a 0.018" guidewire was advanced through the needle into the collection. The needle was then removed over the wire, and a coaxial sheath was placed into the collection over the wire. The wire and stiffening cannula were removed. Subsequently, a 0.038" guidewire was passed into the collection, and the sheath was removed. An 8 Solomon Islander dilator was used to prepare the tract. Finally, a 10 [place] Islander pigtail catheter was passed into the collection over the guidewire. The guidewire was removed, and the catheter was secured. An accordion suction device was placed. Purulent liquid was noted. The patient tolerated the procedure well. IMPRESSION: Successful fine-needle ultrasound-guided percutaneous catheter placement for abscess drainage. A three-way stopcock was placed should flushing be required. Assessment & Plan 61-year-old male with perforated appendicitis with abscess status post percutaneous drainage Continue drain Regular diet Oral antibiotic Repeat WBC tomorrow Likely discharge in next few days if doing well
--- NOTE | 2017-07-13 11:10 | Surgery Progress Note ---
Surgery Progress Note Date of Service Jul 13, 2017. Subjective U/S guided drainage this AM, tolerated well, no new c/o Objective Vital Signs: Date Time Temp Pulse Resp B/P (MAP) Pulse Ox O2 Delivery O2 Flow Rate FiO2 07/13/17 10:23 36.9 80 16 146/78 (100) 97 Room Air 07/13/17 08:40 36.9 87 16 159/83 (108) 96 07/13/17 07:10 Room Air 07/13/17 06:54 37.0 85 18 146/75 (98) 95 Room Air 07/12/17 23:30 36.7 86 18 131/74 (93) 94 Room Air 07/12/17 22:50 Room Air 07/12/17 15:30 Room Air 07/12/17 15:09 36.5 81 18 149/76 (100) 98 Room Air Abdomen: non distended, soft, + pertinent finding (RLQ drain ) Laboratory Results: Results Past 24 Hours Test 07/13/17 06:42 Range/Units Creatinine 0.41 0.60-1.40 mg/dl Est Creatinine Clear Calc Drug Dose 196.3 ml/min Estimated GFR () 145.0 Estimated GFR (Non- 125.1 Microbiology Results 07/13/17 C.difficile Toxin B Gene (PCR) - Final, Complete No C. difficile toxin B gene detected Assessment & Plan perforated appendicitis abscess drainage this AM by IR resume diet, cont abx repeat CBC in AM
[2017-07-13 15:20] VITALS: BP 154/70; PULSE 81; TEMP 36.7; O2SAT 96
[2017-07-13] MEDS: LISINOPRIL 5 MG TAB PO SCH (16:07)
[2017-07-13] MEDS: ENZALUTAMIDE 40 MG CAP PO SCH (16:07)
[2017-07-13 23:09] VITALS: BP 147/76; PULSE 81; TEMP 36.9; O2SAT 95
[2017-07-14] MEDS: PIPERACILL/TAZOBAC IV 3.375 GM in DEXTROSE 5% 100ML 100 ML IV SCH ×2 (05:55→13:50)
[2017-07-14] MEDS: OXYCODONE/ACETAMINOPHEN 5-325 TAB PO PRN ×3 (05:59→13:50)
[2017-07-14 07:55] VITALS: BP 152/72; PULSE 79; TEMP 36.6; O2SAT 94
[2017-07-14 08:11] VITALS: O2SAT 94
[2017-07-14 08:27] LABS: BASO % 0.2 %; BASO ABS # 0.02 K/uL (0-0.2); EOS % 0.7 %; EOS ABS # 0.06 K/uL (0-0.5); HEMATOCRIT 33.7 % (42-52); HEMOGLOBIN 11.6 g/dL (14.0-18.0); IG# 0.16 K/uL (0.00-0.02); LYMPH % 14.2 %; LYMPH ABS # 1.15 K/uL (1.2-3.4); MEAN CORPUSCULAR HEMOGLOBIN 30.3 pg (25-34); MEAN CORPUSCULAR HGB CONC 34.4 g/dl (32-36); MEAN PLATELET VOLUME 10.2 fL (7.4-10.4); MONO % 9.9 %; NEUT ABS # 5.91 K/uL (1.4-6.5); PLATELET COUNT 274 K/uL (130-400); RED CELL DISTRIBUTION WIDTH CV 13.7 % (11.5-14.5); RED CELL DISTRIBUTION WIDTH SD 43.8 fL (36.4-46.3)
[2017-07-14 09:00] LABS: CREATININE 0.39 mg/dl (0.60-1.40)
[2017-07-14] MEDS ORDERED: AMOX875T PO (10:34)
[2017-07-14] MEDS ORDERED: OXYC1TAB3 PO (10:36)
--- NOTE | 2017-07-14 10:39 | Surgery Progress Note ---
Surgery Progress Note Date of Service Jul 14, 2017. Subjective + feeling well, + diet (regular) Objective Vital Signs: Date Time Temp Pulse Resp B/P (MAP) Pulse Ox O2 Delivery O2 Flow Rate FiO2 07/14/17 08:11 94 Room Air 07/14/17 07:55 36.6 79 18 152/72 (98) 94 Room Air 07/14/17 07:45 Room Air 07/13/17 23:15 Room Air 07/13/17 23:09 36.9 81 16 147/76 (99) 95 Room Air 07/13/17 16:05 Room Air 07/13/17 15:20 36.7 81 18 154/70 (98) 96 Room Air Physical Exam: YISSEL drainage (30 cc) Abdomen: non distended, soft Laboratory Results: Results Past 24 Hours Test 07/14/17 07:33 Range/Units White Blood Count 8.10 4.8-10.8 K/uL Red Blood Count 3.83 4.7-6.1 M/uL Hemoglobin 11.6 14.0-18.0 g/dL Hematocrit 33.7 42-52 % Mean Corpuscular Volume 88.0 80-100 fL Mean Corpuscular Hemoglobin 30.3 25-34 pg Mean Corpuscular Hemoglobin Concent 34.4 32-36 g/dl Platelet Count 274 130-400 K/uL Mean Platelet Volume 10.2 7.4-10.4 fL Neutrophils (%) (Auto) 73.0 % Lymphocytes (%) (Auto) 14.2 % Monocytes (%) (Auto) 9.9 % Eosinophils (%) (Auto) 0.7 % Basophils (%) (Auto) 0.2 % Neutrophils # (Auto) 5.91 1.4-6.5 K/uL Lymphocytes # (Auto) 1.15 1.2-3.4 K/uL Monocytes # (Auto) 0.80 0.11-0.59 K/uL Eosinophils # (Auto) 0.06 0-0.5 K/uL Basophils # (Auto) 0.02 0-0.2 K/uL RDW Standard Deviation 43.8 36.4-46.3 fL RDW Coefficient of Variation 13.7 11.5-14.5 % Immature Granulocyte % (Auto) 2.0 % Immature Granulocyte # (Auto) 0.16 0.00-0.02 K/uL Creatinine 0.39 0.60-1.40 mg/dl Est Creatinine Clear Calc Drug Dose 206.4 ml/min Estimated GFR () 148.0 Estimated GFR (Non- 127.7 Assessment & Plan perforated appendicitis WBC remains normal, afebrile minimal drain output since yesterday will d/c home on Augmentin x 10 days, remove drain in clinic next week
[2017-07-14 11:37] VITALS: BP 138/72; PULSE 79; TEMP 36.5; O2SAT 95
[2017-07-14 13:27] VITALS: BP_SYST 124; BP_SYST 138; BP_DIAS 72; BP_DIAS 73; PULSE 79; TEMP 36.5; O2SAT 95
[2017-07-14 15:03] VITALS: BP 166/76; PULSE 83; TEMP 36.9; O2SAT 97
[2017-07-14] MEDS: ENZALUTAMIDE 40 MG CAP PO SCH (15:43)
[2017-07-14] MEDS: LISINOPRIL 5 MG TAB PO SCH (15:43)
[2017-07-14] MEDS ORDERED: AMOXICILLIN/CLAVULANATE TAB 875 MG TAB PO SCH (16:00)
== END 2017-07-14 16:45 | disposition home or self-care (01) | DRG 392 ==
LOC: C.EDB 12:31 → C.MSN 15:06 → ENRESERV 15:30 → OBSVTOIN 07-09 10:30
PROVIDERS: ADMIT Surgery; ATTEND Surgery
DX: K57.20 Diverticulitis of large intestine with perforation and abscess without bleeding (principal); N39.0 Urinary tract infection, site not specified; C61 Malignant neoplasm of prostate; I10 Essential (primary) hypertension; A49.8 Other bacterial infections of unspecified site; Z87.891 Personal history of nicotine dependence

== ENCOUNTER → 2017-07-20 | Outpatient (CLI) | payer OTHER ==
[~2017-07-20] MED LIST changes: +AMOX875T PO; +BICA50TA6 PO
== END | disposition home or self-care (01) ==
LOC: C.LABSPEC 16:51
PROVIDERS: ATTEND Surgery
DX: R10.9 Unspecified abdominal pain (principal); K35.2 Acute appendicitis with generalized peritonitis

== ENCOUNTER → 2017-07-27 | Outpatient (CLI) | payer OTHER ==
[~2017-07-27] MED LIST changes: +OPTIRAY 320 IV PRN
--- NOTE | 2017-07-27 12:04 | DIAGNOSTIC IMAGING REPORT ---
ABDOMEN AND PELVIS CT WITH IV AND ORAL CONTRAST CT DOSE: 710.36 mGy.cm HISTORY: Generalized abdominal pain. TECHNIQUE: Multiaxial CT images of the abdomen and pelvis were performed following the use of intravenous and oral contrast. A dose lowering technique was utilized adhering to the principles of ALARA. COMPARISON STUDY: Abdomen and pelvis CT 07/12/2017. FINDINGS: The lung bases are clear. No pneumoperitoneum. No pneumatosis. Multiple scattered osteoblastic metastatic lesions are again noted. No hepatic or splenic masses. The adrenal glands, pancreas, and gallbladder are unremarkable. Multiple subcentimeter hypodense renal lesions are again noted. These are technically too small to characterize. Punctate cortical calcifications within the right kidney. No hydronephrosis. No retroperitoneal lymphadenopathy. 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 This remains unchanged. Mild to moderate multifocal narrowing within the left external iliac artery. Moderate irregular bladder wall thickening, unchanged. The prostate gland is surgically absent. Colonic diverticulosis. No evidence for bowel obstruction. A right lower quadrant percutaneous drainage catheter is noted. The surrounding abscess is completely drained. Appendiceal thickening/phlegmon at the cecal base is identified. This measures up to 1.9 cm in thickness and is consistent with the acute appendicitis. There is also abnormal bowel wall thickening at the cecum. Tiny subcapsular fluid collection at the right hepatic lobe on image 193. This measures 1.7 x 0.7 mm. Chronic urothelial thickening within the ureters and renal pelvis series is again noted. IMPRESSION: 1. Complete drainage of the right lower quadrant periappendiceal abscess. The percutaneous drainage catheter remains in place. 2. Abnormal thickening and inflammatory change within the appendix consistent with the residual appendicitis. This also abnormal thickening within the wall of the cecum. This is likely reactive. An underlying mass could also have a similar appearance. 3. Moderate irregular thickening of the bladder wall. Cystoscopy is recommended to exclude the possibility of a urothelial neoplasm. 4. Tiny subcapsular fluid collection along the inferior aspect of the right hepatic lobe. This may represent a tiny subcapsular abscess. This measures 1.7 x 0.7 cm. 5. Osteoblastic metastatic disease. 6. 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 Electronically signed by: Solomon Vivas M.D. 07/27/2017 12:03 PM Dictated Date/Time: 07/27/2017 11:51 AM
== END | disposition home or self-care (01) ==
LOC: C.CTS 11:17
PROVIDERS: ATTEND Surgery
DX: K35.2 Acute appendicitis with generalized peritonitis (principal); R10.9 Unspecified abdominal pain; I74.5 Embolism and thrombosis of iliac artery; M89.8X9 Other specified disorders of bone, unspecified site

== ENCOUNTER → 2017-08-27 | Outpatient (CLI) | payer OTHER ==
--- NOTE | 2017-08-27 12:46 | DIAGNOSTIC IMAGING REPORT ---
CT ABD/PELVIS IV AND ORAL CONT CLINICAL HISTORY: Perforated appendicitis. Follow-up study. COMPARISON STUDY: July 27, 2017 TECHNIQUE: Following the IV administration of 94 mL of Optiray-320, CT scan of the abdomen and pelvis was performed from the lung bases to the proximal femurs. Images are reviewed in the axial, sagittal, and coronal planes. IV contrast was administered without complication. A dose lowering technique was utilized adhering to the principles of ALARA. CT DOSE: 792.71 mGycm FINDINGS: Lower chest: There are minor basilar atelectatic changes Liver: The contrast-enhanced liver is normal in size, contour, and attenuation. There is no intrahepatic biliary ductal dilatation. The hepatic veins and portal veins are patent. Gallbladder: Mild fundal adenomyomatosis is suspected. No calculi are visualized Spleen: Normal in size and attenuation. Pancreas: Unremarkable. Adrenal glands: Unremarkable. Kidneys: Multiple bilateral subcentimeter renal hypodensities remain present. These likely represent cysts. Bowel: There are no transition zone to indicate bowel obstruction. There is pandiverticulosis. No acute peridiverticular inflammatory changes are visualized. The right sided abdominal wall drain is been removed. There is a sliver-like fluid collection the site of the prior catheter. There is decreasing pericecal soft tissue nodularity, likely representing resolving inflammatory change. Peritoneum: There is no intraperitoneal free air or abdominal ascites. There is an umbilical hernia which contains a small knuckle of small bowel. There are no obstructive changes. Vasculature: The abdominal aorta is normal in course and caliber. There are suspected left common iliac artery occlusion. Adenopathy: None. Pelvic viscera: There is mild bladder wall thickening. Skeletal structures: There are multiple blastic skeletal lesions consistent with metastatic disease. IMPRESSION: 1. Interval removal of the right lower quadrant drainage catheter 2. Tiny residual right lateral abdominal wall fluid collection 3. Decreasing pericecal soft tissue nodularity, likely representing resolving inflammatory change 4. Pandiverticulosis. No evidence of acute diverticulitis 5. Osteoblastic metastatic disease 6. Persistent bladder wall thickening Electronically signed by: Jarred Cui M.D. 08/27/2017 12:44 PM Dictated Date/Time: 08/27/2017 12:35 PM
== END | disposition home or self-care (01) ==
LOC: C.CTS 11:34
PROVIDERS: ATTEND Surgery
DX: K35.2 Acute appendicitis with generalized peritonitis (principal); K57.90 Diverticulosis of intestine, part unspecified, without perforation or abscess without bleeding; C41.9 Malignant neoplasm of bone and articular cartilage, unspecified